=== PATIENT | male | born 1970 | race Caucasian/White ===

== ENCOUNTER → 2018-01-25 | Outpatient (CLI) | payer OTHER ==
[2018-01-25 14:35] LABS: Blood Urea Nitrogen 9 mg/dL (9-20)
--- NOTE | 2018-01-25 16:15 | CT ---
EXAMINATION TYPE: CT ChestAbdPelvis w con DATE OF EXAM: 01/25/2018 INDICATION: Patient complains of weakness, fatigue, and loss of appetite. Patient has known history of lung ca with mets to liver and spine. COMPARISON: NONE available at this location. CT DLP: 1750.7 mGycm CONTRAST: Performed with Oral Contrast and with IV Contrast, patient injected with 100 mL of Isovue 300. TECHNIQUE: Axial images at 5 mm thick sections. Reconstructed images in the coronal plane. Delayed images through the kidneys. FINDINGS: CT CHEST: Portion of the thyroid visualized is normal. Subglottic airway proximally is normal. Within the mid t o distal trachea there is a stent present with some thickening surrounding the stent. This extends in to the proximal bronchi bilaterally. No stenosis within the stent is evident. Some pleural thickening appears to be along the posterior right midlung. There is some stranding vu g the major fissure on the right upper lung field. Faint density measuring 0.7 cm within the lingula. Series 4 image 36. There is an irregular density in the posterior lateral left lung base measuring 1.1 cm. Series 4 imag e 44. Prior rib fractures present on the right at the lung bases. Series 4 image 43, image 54. This include s rib 8 posteriorly laterally and rib 9 more laterally. A 1.3 cm lymph node is in the subcarinal region. The ascending aorta diameter at the level of the main pulmonary artery is 3.9 cm. The main pulmonary artery diameter at the bifurcation is 3.1 cm. Small to moderate pericardial effusion is present. CT ABDOMEN: Liver: There is a large ill-defined hypodense mass encompassing the entire inferior right lobe liver. This measures 16 x 14 cm is compatible with the patient's reported metastasis. Some additional hypod ensities in the medial right lobe liver. Spleen: Normal Pancreas: Normal Adrenal glands: The adrenal glands are normal. Gallbladder: Normal Kidneys: No masses are evident. No hydronephrosis is present. No cysts are present. Delayed images were obtained through the kidneys, which remain unremarkable. Aorta: Vascular calcification is within the aorta. Inferior vena cava: Normal. CT PELVIS: Loops of bowel within the abdomen and pelvis are normal. There are loops of bowel which are incom pletely distended or lack oral contrast limiting their evaluation. Diverticular changes without acute diverticulitis are within the sigmoid colon. Appendix: Not visualized. Urinary bladder: Partially decompressed. Genitourinary structures: Prostate appears normal. Osseous structures: Multiple scattered sclerotic lesions are within the pelvis. There are some scatte red sclerotic areas within the vertebral bodies. There is a lytic area within the anterior lateral as pect of the T11 superior vertebral body. A lytic area within T5 level is not excluded. IMPRESSIONS: 1. Scattered lung findings which are nonspecific but can be compatible with the patient's reported [place] ng cancer. Overtly suspicious mass is not readily apparent. 2. There is a suspicious enlarged lymph node in the subcarinal region. 3. Tracheobronchial stent with surrounding soft tissue. 4. Very large mass mid to inferior right lobe liver compatible with patient's reported metastasis. 5. Diverticulosis without acute diverticulitis sigmoid colon. 6. Suspected lytic lesions within the thoracic spine. 7. Sclerotic lesions within the pelvis.
== END ==
LOC: RADPROMAIN 13:56
PROVIDERS: ATTEND Internal Medicine Hematology & Oncology
DX: C34.90 Malignant neoplasm of unspecified part of unspecified bronchus or lung (principal); R16.0 Hepatomegaly, not elsewhere classified; K57.30 Diverticulosis of large intestine without perforation or abscess without bleeding; Z96.89 Presence of other specified functional implants
CPT/HCPCS: 82565; 84520; 71260; 74177; 36415; Q9967

== ENCOUNTER → 2018-02-23 | Outpatient (CLI) | payer OTHER ==
--- NOTE | 2018-02-23 14:34 | XR ---
EXAMINATION TYPE: XR chest 2V DATE OF EXAM: 02/23/2018 COMPARISON: NONE HISTORY: Chest pain TECHNIQUE: Frontal and lateral views of the chest are obtained. FINDINGS: There is no focal air space opacity. Left-sided MediPort catheter is in place. No evidence for pneumothorax. No pleural effusion. The cardiac silhouette size is within normal limits. The osseous structures are grossly intact. IMPRESSION: 1. No acute cardiopulmonary process.
--- NOTE | 2018-02-23 14:37 | XR ---
EXAMINATION TYPE: XR abdomen 2V DATE OF EXAM: 02/23/2018 COMPARISON: NONE HISTORY: Weakness TECHNIQUE: One view abdominal series FINDINGS: The osseous structures are intact. The bowel gas pattern is nonspecific. Lung bases are clear. Few prominent small bowel loops are seen in the left abdomen. There is a mottled appearance to the visualized osseous structures which can be associated with malig sanaz. There appears to be a marked deformity of the right ninth rib which could represent structure pathologic fracture. IMPRESSION: 1. Abnormal appearance of the visualized osseous structures correlate for bony metastases. Destructiv e lesion involving the posterior lateral right ninth rib. 2. Prominent bowel loops in the left abdomen could be associated with ileus or enteritis correlate cl inically.
== END | disposition home or self-care (01) ==
LOC: RADXRMAIN 14:07
PROVIDERS: ATTEND Nurse Practitioner Adult Health
DX: C34.90 Malignant neoplasm of unspecified part of unspecified bronchus or lung (principal); D63.8 Anemia in other chronic diseases classified elsewhere; G89.3 Neoplasm related pain (acute) (chronic); E04.1 Nontoxic single thyroid nodule
CPT/HCPCS: 71046; 74019

== ENCOUNTER 2018-02-24 13:32 | Inpatient (IN) | payer OTHER ==
--- NOTE | 2018-02-24 14:50 | ED ---
Abdominal Pain HPI - General Chief Complaint: Abdominal Pain Stated Complaint: intestinal blockage Time Seen by Provider: 02/24/18 14:32 Source: patient Mode of arrival: wheelchair Limitations: no limitations - History of Present Illness Initial Comments: 47-year-old male with PMH of metastatic lung CA currently on immunotherapy ( last given 2 weeks prior) presenting with abdominal pain, nausea, and vomiting. He was seen here yesterday for nausea vomiting. Abdominal x-ray was done which showed an ileus. This morning the patient continued to have vomiting and called his oncologist. Spoke with CARLOS James for patient's Oncologist, Dr. Shanks , states they're concerned the patient's recent immunotherapy that he was having inflammation of the bowel. She denies any F/C, chest pain, or shortness of breath. - Related Data Home Medications Medication Instructions Recorded Confirmed Benzonatate [Tessalon Perles] 100 mg PO TID PRN 02/24/18 02/24/18 Calcium Carbonate [Calcium] 600 mg PO DAILY 02/24/18 02/24/18 Cholecalciferol [Vitamin D3] 1,000 unit PO DAILY 02/24/18 02/24/18 Ciprofloxacin HCl [Cipro] 500 mg PO Q12HR 02/24/18 02/24/18 Folic Acid 0.4 mg PO DAILY 02/24/18 02/24/18 HYDROcodone/APAP 10-325MG [[facility] tab PO Q6H PRN 02/24/18 02/24/18 10-325] Nystatin 100,000 Unit/ml Susp 5 ml PO BID 02/24/18 02/24/18 [Mycostatin Oral Susp] Ondansetron HCl [Zofran] 8 mg PO Q8H PRN 02/24/18 02/24/18 Pregabalin [Lyrica] 75 mg PO BID 02/24/18 02/24/18 Ranitidine HCl [Zantac] 150 mg PO DAILY 02/24/18 02/24/18 Vitamin B-17 1 tab PO DAILY 02/24/18 02/24/18 Vitamin E 1,000 unit PO DAILY 02/24/18 02/24/18 tiZANidine [Zanaflex] 2 mg PO Q6H PRN 02/24/18 02/24/18 Allergies Allergy/AdvReac Type Severity Reaction Status Date / Time morphine Allergy Unknown Verified 02/24/18 14:53 Review of Systems ROS Statement: Those systems with pertinent positive or pertinent negative responses have been documented in the HPI. Review of Systems Constitutional: Denies fever, chills Eyes: Denies change in vision, Denies pain Ears, nose, mouth, throat: Denies headaches. Positive sore throat. Cardiovascular: Denies chest pain. Denies palpitations Respiratory: Denies shortness of breath, Denies cough Gastrointestinal: Positive abdominal pain, nausea and vomiting. Denies diarrhea. Genitourinary: Denies hematuria, Denies infections Musculoskeletal: Denies pain, Denies swelling Integumentary: Denies rash Neurological: Denies headache, focal weakness, focal numbness Psychiatric: Denies anxiety, Denies depression Hematologic/Lymphatic: Denies easy bleeding or bruising ROS Other: All systems not noted in ROS Statement are negative. Past Medical History Past Medical History: Cancer Additional Past Medical History / Comment(s): stage 4 lung cancer History of Any Multi-Drug Resistant Organisms: None Reported Past Surgical History: Hernia Repair, Orthopedic Surgery Additional Past Surgical History / Comment(s): liver biopsy Past Psychological History: No Psychological Hx Reported Smoking Status: Former smoker Past Alcohol Use History: None Reported Past Drug Use History: None Reported General Exam - General Exam Comments Initial Comments: General: Awake, alert, No acute Distress HENT: Normocephalic. Atraumatic Eyes: PERRL. EOMI. No scleral icterus. No injected conjunctiva Neck: Full ROM Chest/Lungs: Clear to auscultation bilaterally. No wheezing, rhonchi, or rales Cardiac: Regular rate, rhythm. No murmurs or rubs Abdomen/GI: Soft. TTP in RUQ and epigastrium. No rebound or guarding. Hepatomegaly. Musculoskeletal: Full ROM Skin: Warm, dry, intact Neurologic: A/Ox3, no weakness, no sensory deficit, no abnormal gait, no coordination deficit Limitations: no limitations Course Vital Signs 02/24/18 02/24/18 13:36 16:48 Temperature 97.8 F Pulse Rate 116 H 82 Respiratory 20 16 Rate Blood Pressure 129/79 125/79 O2 Sat by Pulse 98 97 Oximetry Medical Decision Making - Medical Decision Making 47-year-old male presenting after being sent from his oncologist office. Initial exam patient's awake, alert, no acute distress. He is tachycardic but vital signs are otherwise stable. Spoke with Erika, his oncologist's [employer], who states there is concern for bowel infection or necrosis. She spoke with Dr. Shanks regarding his symptoms, who would like him placed on bowel rest, IVF hydration, cipro/Flagyl, and 0.5 mg/kg per day of prednisone. They would like him admitted to the hospital with a surgeon on consult and a CT abdomen pelvis to evaluate for entercolitis. 1701 Spoke with admitting physician. Patient is currently stable for transfer to inpatient unit. - Lab Data Result diagrams: 02/24/18 15:00 02/24/18 15:00 Lab Results 02/24/18 02/24/18 02/24/18 Range/Units 15:00 15:00 16:46 WBC 6.7 (3.8-10.6) k/uL RBC 2.55 L (4.30-5.90) m/uL Hgb 7.4 L (13.0-17.5) gm/dL Hct 23.5 L (39.0-53.0) % MCV 92.1 (80.0-100.0) fL MCH 29.2 (25.0-35.0) pg MCHC 31.7 (31.0-37.0) g/dL RDW 18.1 H (11.5-15.5) % Plt Count 223 (150-450) k/uL Neutrophils % (Manual) 72 % Band Neutrophils % 8 % Lymphocytes % (Manual) 3 % Monocytes % (Manual) 13 % Eosinophils % (Manual) 3 % Metamyelocytes % 1 % Myelocytes % 3 % Neutrophils # (Manual) 5.30 (1.3-7.7) k/uL Lymphocytes # (Manual) 0.20 L (1.0-4.8) k/uL Monocytes # (Manual) 0.87 (0-1.0) k/uL Eosinophils # (Manual) 0.20 (0-0.7) k/uL Metamyelocytes # (Man) 0.07 H (0) k/uL Myelocytes # (Manual) 0.20 H (0) k/uL Nucleated RBCs 2 H (0-0) /100 WBC Manual Slide Review Performed Polychromasia Present Hypochromasia Slight Poikilocytosis Slight Anisocytosis Slight Sodium 135 L (137-145) mmol/L Potassium 3.6 (3.5-5.1) mmol/L Chloride 104 (98-107) mmol/L Carbon Dioxide 23 (22-30) mmol/L Anion Gap 8 mmol/L BUN 12 (9-20) mg/dL Creatinine 0.48 L (0.66-1.25) mg/dL Est GFR (CKD-EPI)AfAm >90 (>60 ml/min/1.73 sqM) Est GFR (CKD-EPI)NonAf >90 (>60 ml/min/1.73 sqM) Glucose 99 (74-99) mg/dL Calcium 7.8 L (8.4-10.2) mg/dL Total Bilirubin 0.5 (0.2-1.3) mg/dL Conjugated Bilirubin 0.0 (0.0-0.3) mg/dL Unconjugated Bilirubin 0.0 (0.0-1.1) mg/dL Delta Bilirubin 0.5 H (0.0-0.2) mg/dL AST 32 (17-59) U/L ALT 47 (21-72) U/L Alkaline Phosphatase 284 H (38-126) U/L Total Protein 4.9 L (6.3-8.2) g/dL Albumin 2.6 L (3.5-5.0) g/dL Lipase 659 H (23-300) U/L Urine Color Yellow Urine Appearance Clear (Clear) Urine pH 6.0 (5.0-8.0) Ur Specific [place] 1.041 H (1.001-1.035) Urine Protein Trace H (Negative) Urine Glucose (UA) Negative (Negative) Urine Ketones Negative (Negative) Urine Blood Negative (Negative) Urine Nitrite Negative (Negative) Urine Bilirubin Negative (Negative) Urine Urobilinogen 2.0 (<2.0) mg/dL Ur Leukocyte Esterase Negative (Negative) Disposition Clinical Impression: Liver metastases, Abdominal pain, Pancreatitis, Pericardial effusion, History of immunotherapy, Anemia, Esophageal thrush Disposition: ADMITTED IP TO THIS [facility] Condition: Good Referrals: Prosper Shanks MD [Primary Care Provider] - 1-2 days Decision to Admit Reason: Admit from [facility] Decision Date: 02/24/18 - Out of Hospital Transfer - Req. Specs Out of Hospital Transfer - Requested Specifics: Telemetry Unit
[2018-02-24] MEDS ORDERED: LACTATED RINGERS 1,000 ML IV ONE (14:59)
[2018-02-24] MEDS ORDERED: RX INFO: IV CONTRAST WAS GIVEN 1 EACH MISC MISCELLANE PRN (15:00)
[2018-02-24] MEDS: SODIUM CHLORIDE 0.9% 1,000 ML IV ONE (15:14)
[2018-02-24] MEDS: MAG HYDROX/AL HYDROX/SIMETH 30 ML, LIDOCAINE VISCOUS 30 ML, NYSTATIN 100,000 UNIT/ML SU... PO SCH ×6 (15:16→23:44)
[2018-02-24] MEDS ORDERED: metroNIDAZOLE-NS PMX 500 MG in SALINE 1 100ML.BAG IVPB STA (15:26)
[2018-02-24 15:38] LABS: ALT 47 U/L (21-72); AST 32 U/L (17-59); Albumin 2.6 g/dL (3.5-5.0); Alkaline Phosphatase 284 U/L (38-126); Anion Gap 8 mmol/L; Bilirubin, Delta 0.5 mg/dL (0.0-0.2); Blood Urea Nitrogen 12 mg/dL (9-20); Calcium 7.8 mg/dL (8.4-10.2); Carbon Dioxide 23 mmol/L (22-30); Chloride 104 mmol/L (98-107); Glucose 99 mg/dL (74-99); Lipase 659 U/L (23-300); Potassium 3.6 mmol/L (3.5-5.1); Sodium 135 mmol/L (137-145); Total Bilirubin 0.5 mg/dL (0.2-1.3); Total Protein 4.9 g/dL (6.3-8.2)
[2018-02-24 16:09] LABS: Anisocytosis Slight; HCT 23.5 % (39.0-53.0); HGB 7.4 gm/dL (13.0-17.5); Hypochromasia Slight; MCH 29.2 pg (25.0-35.0); MCHC 31.7 g/dL (31.0-37.0); MCV 92.1 fL (80.0-100.0); Mean Platelet Volume 7.5; Platelet Count 223 k/uL (150-450); Poikilocytosis Slight; RBC 2.55 m/uL (4.30-5.90); RDW 18.1 % (11.5-15.5)
--- NOTE | 2018-02-24 16:24 | CT ---
EXAMINATION TYPE: CT abdomen pelvis w con DATE OF EXAM: 02/24/2018 COMPARISON: 01/25/2018 HISTORY: Patient complains of constipation, nausea, and vomiting. CT DLP: 1707 mGycm Automated exposure control for dose reduction was used. CONTRAST: CT scan of the abdomen pelvis is performed with IV Contrast, patient injected with 100 mL of Isovue 3 00. FINDINGS- LUNG BASES-there is cardiomegaly and large pericardial effusion. Small bilateral pleural effusions wi th previous rib fractures are noted. Bilateral consolidation seen. Tiny nodules are seen involving th e periphery of the right lower lobe measuring 5 mm or less. Metastasis in the differential diagnosis. . LIVER/GB-there are multiple hepatic lesions again noted with the largest measuring approximately 16 x 11 cm. Occupying the majority of the right lobe of the liver with additional nodules noted near the dome of the liver and within the left lobe of the liver.. PANCREAS- No gross abnormality is seen. SPLEEN- No gross abnormality is seen. ADRENALS-bilateral 1 cm or less adrenal nodules are stable.. KIDNEYS/BLADDER-no hydronephrosis or nephrolithiasis. There is a small hypodensity at the lower pole the left kidney too small to characterize.. BOWEL-bowel gas pattern nonspecific.. LYMPH NODES- No greater than 1cm abdominal or pelvic lymph nodes are appreciated. OSSEOUS STRUCTURES-diffuse widespread skeletal metastasis with evidence of previous fracture involvin g a right-sided rib noted.. OTHER- aorta of normal caliber. IMPRESSION- 1. Large hepatic mass with numerous additional hepatic masses suspicious for malignancy stable from t he prior exam. 2. Increasing pericardial effusion which is now large in size. 3. Widespread bony metastases 4. Nonspecific gas pattern. 5. Bibasilar subsegmental consolidation likely in the basis of atelectasis with tiny effusions.
[2018-02-24 16:41] LABS: Band Neutrophils % 8 %; Metamyelocytes # (M) 0.07 k/uL (0); Metamyelocytes % 1 %; Myelocytes % 3 %; Neutrophils % (M) 72 %; Nucleated Red Blood Cells 2 /100 WBC (0-0); Total Cells Counted 200
[2018-02-24 16:42] LABS: Monocytes # (M) 0.87 k/uL (0-1.0); Polychromasia Present; WBC 6.7 k/uL (3.8-10.6)
[2018-02-24] MEDS ORDERED: NALOXONE 0.4 MG/ML 1 ML VIAL IV PRN (16:53)
[2018-02-24] MEDS ORDERED: ACETAMINOPHEN TAB 325 MG TAB PO PRN (16:53)
[2018-02-24 16:58] LABS: Appearance,Urine Clear (Clear); Bilirubin,Urine Negative (Negative); Blood,Urine Negative (Negative); Color,Urine Yellow; Glucose,Urine (UA) Negative (Negative); Ketones,Urine Negative (Negative); Leukocyte Esterase,Urine Negative (Negative); Nitrite,Urine Negative (Negative); Protein,Urine Trace (Negative); Specific Gravity,Urine 1.041 (1.001-1.035)
[2018-02-24] MEDS ORDERED: FAMOTIDINE 20 MG TAB PO SCH (21:00)
[2018-02-24] MEDS: methylPREDNISolone SOD SUCCI 125 MG/2 ML VIAL IV SCH (22:25)
[2018-02-24] MEDS: PREGABALIN 75 MG CAP PO SCH (22:25)
[2018-02-24] MEDS: CIPROFLOXACIN/DEXTROSE PMX 400 MG in DEXTROSE/WATER 1 200ML.BAG IVPB SCH (22:25)
[2018-02-24] MEDS: NYSTATIN 100,000 UNIT/ML SUSP 500,000 UNIT/5 ML CUP PO SCH (22:26)
[2018-02-24] MEDS: DOCUSATE 100 MG CAP PO SCH (22:27)
[2018-02-24] MEDS: FAMOTIDINE 20 MG/2 ML VIAL IV SCH (22:29)
[2018-02-24] MEDS: HYDROcodone/APAP 5-325MG 1 EACH TAB PO PRN (22:29)
--- NOTE | 2018-02-24 22:29 | P.HPIM ---
History of Present Illness H&P Date: 02/24/18 Chief Complaint: Nausea vomiting and unable to keep down food Patient is a 47-year-old male with PMH of metastatic lung CA currently on immunotherapy (last given 2 weeks prior) presenting with abdominal pain, nausea , and vomiting. Patient came to ER yesterday with complaints of nausea vomiting. Abdominal x-ray was done which showed an ileus. This morning the patient continued to have vomiting and called his oncologist. Spoke with CARLOS James for patient's Oncologist, Dr. Shanks, states they're concerned the patient's recent immunotherapy that he was having inflammation of the bowel. She denies any F/C, chest pain, or shortness of breath. Denied any complaints of chest pain or shortness of breath. Patient says that his been tachycardic for the past few months. CT of abdomen pelvis showed left hepatic mass with numerous additional hepatic masses suspicious for malignancy. Stable from the prior exam Increased pericardial effusion Widespread bony metastasis Nonspecific bowel gas pattern Bibasilar subsegmental atelectasis Review of Systems Constitutional: Patient denies any fever or chills . No generalized weakness or weight loss. Abdomen: Nausea vomiting and abdominal pain. No diarrhea. No constipation.. Cardiovascular: Patient denies any chest pain or short of breath no palpitations. Respiratory: patient denied any cough is from production. No shortness of breath Neurologic: Patient denied any numbness or tingling headache. Musculoskeletal: Patient denies any complaints of joint swelling or deformity. Skin: Negative Psychiatric: Negative Endocrine: No heat or cold intolerance. No recent weight gain. Genitourinary: No dysuria or hematuria. All other 14 point ROS negative except the above Past Medical History Past Medical History: Cancer Additional Past Medical History / Comment(s): stage 4 lung cancer History of Any Multi-Drug Resistant Organisms: None Reported Past Surgical History: Hernia Repair, Orthopedic Surgery Additional Past Surgical History / Comment(s): liver biopsy, stent below trachea due to mass Past Anesthesia/Blood Transfusion Reactions: No Reported Reaction Past Psychological History: No Psychological Hx Reported Smoking Status: Former smoker Past Alcohol Use History: None Reported Past Drug Use History: None Reported - Past Family History Father History Unknown: Yes Family Medical History: Cancer Mother Family Medical History: COPD Medications and Allergies Home Medications Medication Instructions Recorded Confirmed Type Benzonatate [Tessalon Perles] 100 mg PO TID PRN 05/03/18 05/03/18 History Calcium Carbonate [Calcium] 600 mg PO DAILY 02/24/18 02/24/18 History Cholecalciferol [Vitamin D3] 1,000 unit PO DAILY 02/24/18 02/24/18 History Ciprofloxacin HCl [Cipro] 500 mg PO Q12HR 02/24/18 02/24/18 History Folic Acid 0.4 mg PO DAILY 02/24/18 02/24/18 History HYDROcodone/APAP 10-325MG [[place] 1 tab PO Q6H PRN 02/24/18 02/24/18 History 10-325] Nystatin 100,000 Unit/ml Susp 5 ml PO BID 02/24/18 02/24/18 History [Mycostatin Oral Susp] Ondansetron HCl [Zofran] 8 mg PO Q8H PRN 02/24/18 02/24/18 History Pregabalin [Lyrica] 75 mg PO BID 02/24/18 02/24/18 History Ranitidine HCl [Zantac] 150 mg PO DAILY 02/24/18 02/24/18 History Vitamin B-17 1 tab PO DAILY 02/24/18 02/24/18 History Vitamin E 1,000 unit PO DAILY 02/24/18 02/24/18 History tiZANidine [Zanaflex] 2 mg PO Q6H PRN 02/24/18 02/24/18 History Allergies Allergy/AdvReac Type Severity Reaction Status Date / Time morphine Allergy Unknown Verified 02/24/18 14:53 Physical Exam Vitals: Vital Signs Temp Pulse Resp BP Pulse Ox 02/24/18 17:37 18 02/24/18 16:48 82 16 125/79 97 02/24/18 13:36 97.8 F 116 H 20 129/79 98 Intake and Output 02/24/18 02/24/18 02/24/18 06:59 14:59 22:59 Other: Weight 98.883 kg 98.88 kg PHYSICAL EXAMINATION: Patient is lying in the bed comfortably, no acute distress, awake alert and oriented.. HEENT: Normocephalic. Neck is supple. Pupils reactive. Nostrils clear. Oral cavity is moist. Ears reveal no drainage. Neck reveals no JVD, carotid bruits, or thyromegaly. CHEST EXAMINATION: Trachea is central. Symmetrical expansion. Bilateral diffuse rhonchi and coarse breath sounds CARDIAC: Normal S1, S2 with no gallops. No murmurs ABDOMEN: Soft. Bowel sounds normal. Hepatic mass palpable. No abdominal bruits. Extremities: reveal no edema. No clubbing or cyanosis Neurologically awake, alert, oriented x3 with well-coordinated movements. No focal deficits noted Skin: No rash or skin lesions. Psychiatric: Cooperative. Nonsuicidal Musculoskeletal: No joint swelling or deformity. Normal range of motion. Results CBC & Chem 7: 02/24/18 15:00 02/24/18 15:00 Labs: Abnormal Lab Results - Last 24 Hours (Table) 02/24/18 02/24/18 02/24/18 Range/Units 15: 15:00 16:46 RBC 2.55 L (4.30-5.90) m/uL Hgb 7.4 L (13.0-17.5) gm/dL Hct 23.5 L (39.0-53.0) % RDW 18.1 H (11.5-15.5) % Lymphocytes # (Manual) 0.20 L (1.0-4.8) k/uL Metamyelocytes # (Man) 0.07 H (0) k/uL Myelocytes # (Manual) 0.20 H (0) k/uL Nucleated RBCs 2 H (0-0) /100 WBC Sodium 135 L (137-145) mmol/L Creatinine 0.48 L (0.66-1.25) mg/dL Calcium 7.8 L (8.4-10.2) mg/dL Delta Bilirubin 0.5 H (0.0-0.2) mg/dL Alkaline Phosphatase 284 H (38-126) U/L Total Protein 4.9 L (6.3-8.2) g/dL Albumin 2.6 L (3.5-5.0) g/dL Lipase 659 H (23-300) U/L Ur Specific [place] 1.041 H (1.001-1.035) Urine Protein Trace H (Negative) Thrombosis Risk Factor Assmnt - DVT/VTE Prophylaxis DVT/VTE Prophylaxis: Pharmacologic Prophylaxis ordered - Choose All That Apply Any of the Below Risk Factors Present?: Yes Each Factor Represents 1 point: Age 41-60 years Other Risk Factors: Yes Each Risk Factor Represents 2 Points: Malignancy Other congenital or acquired thrombophilia - If yes, enter type in comment: No Thrombosis Risk Factor Assessment Total Risk Factor Score: 3 Thrombosis Risk Factor Assessment Level: Moderate Risk Assessment and Plan Assessment: Nausea vomiting abdominal pain possible chemo related gastritis Acute pancreatitis with elevated lipase level 659 Large pericardial effusion. Increase in size from prior Recent history of colon wall thickening/colitis continued on antibiotics in the form of Cipro and Flagyl Metastatic lung cancer with metastases to liver/ and spine and hip currently on immunotherapy Normocytic anemia. Hemoglobin 7.4 Rule out iron deficiency Morbid obesity with BMI 36.3 Hypovolemic hyponatremia Mild to moderate protein calorie malnutrition DVT prophylaxis Plan: Patient will be continued on IV hydration and clear liquid diet and advance as tolerated. We will get 2-D echocardiogram to assess pericardial effusion and consider CT surgery consult. Symptomatic management for nausea and vomiting and pain management. Will check iron profile and repeat labs in the a.m. Oncology was consulted. Further recommendations based on the clinical course. Prognosis is poor with multiple medical problems and metastatic lung cancer. Discussed with family in detail. Time with Patient: Greater than 30
[2018-02-24] MEDS: metroNIDAZOLE-NS PMX 500 MG in SALINE 1 100ML.BAG IVPB SCH (23:12)
[2018-02-25] MEDS: ONDANSETRON ODT 4 MG TAB PO PRN ×4 (01:07→21:09)
[2018-02-25] MEDS: HYDROcodone/APAP 5-325MG 1 EACH TAB PO PRN ×3 (07:36→21:08)
[2018-02-25] MEDS: methylPREDNISolone SOD SUCCI 125 MG/2 ML VIAL IV SCH ×2 (07:37→16:59)
[2018-02-25] MEDS: metroNIDAZOLE-NS PMX 500 MG in SALINE 1 100ML.BAG IVPB SCH ×3 (07:37→22:12)
[2018-02-25] MEDS: VITAMIN E (DL,TOCOPHERYL ACET) 400 UNIT CAP PO SCH (07:38)
[2018-02-25] MEDS: FOLIC ACID 1 MG TAB PO SCH (07:38)
[2018-02-25] MEDS: DOCUSATE 100 MG CAP PO SCH ×2 (07:38→21:07)
[2018-02-25] MEDS: CHOLECALCIFEROL 1,000 UNIT TAB PO SCH (07:39)
[2018-02-25] MEDS: CALCIUM CARBONATE 500 MG CHEWABLE PO SCH (07:39)
[2018-02-25] MEDS: FAMOTIDINE 20 MG/2 ML VIAL IV SCH ×2 (07:39→21:07)
[2018-02-25] MEDS: NYSTATIN 100,000 UNIT/ML SUSP 500,000 UNIT/5 ML CUP PO SCH ×2 (07:40→21:07)
[2018-02-25] MEDS: PREGABALIN 75 MG CAP PO SCH ×2 (07:49→21:08)
[2018-02-25 08:02] LABS: Anisocytosis Slight; Basophils # (A) 0.1 k/uL (0-0.2); Basophils % (A) 1 %; Eosinophils # (A) 0.1 k/uL (0-0.7); Eosinophils % (A) 1 %; HCT 29.4 % (39.0-53.0); Hypochromasia Moderate; Lymphocytes # (A) 0.3 k/uL (1.0-4.8); Lymphocytes % (A) 4 %; MCHC 30.8 g/dL (31.0-37.0); MCV 94.2 fL (80.0-100.0); Mean Platelet Volume 7.9; Monocytes # (A) 0.5 k/uL (0-1.0); Monocytes % (A) 6 %; Neutrophils # (A) 7.4 k/uL (1.3-7.7); Neutrophils % (A) 87 %; Platelet Count 285 k/uL (150-450); Poikilocytosis Slight; RBC 3.12 m/uL (4.30-5.90); RDW 18.1 % (11.5-15.5); WBC 8.6 k/uL (3.8-10.6)
[2018-02-25 08:08] LABS: Anion Gap 13 mmol/L; Blood Urea Nitrogen 13 mg/dL (9-20); Calcium 9.1 mg/dL (8.4-10.2); Carbon Dioxide 25 mmol/L (22-30); Chloride 99 mmol/L (98-107); Glucose 135 mg/dL (74-99); Potassium 4.7 mmol/L (3.5-5.1); Sodium 137 mmol/L (137-145)
[2018-02-25] MEDS: BENZONATATE 100 MG CAP PO PRN (08:57)
[2018-02-25] MEDS: CIPROFLOXACIN/DEXTROSE PMX 400 MG in DEXTROSE/WATER 1 200ML.BAG IVPB SCH ×2 (08:57→21:06)
[2018-02-25] MEDS ORDERED: VITAMIN B17 PO SCH (09:00)
[2018-02-25] MEDS ORDERED: SODIUM CHLORIDE 0.9% 500 ML IV ONE ×2 (09:17→09:28)
[2018-02-25] MEDS ORDERED: LORazepam 2 MG/ML INJ IV STA (09:27)
[2018-02-25] MEDS: SODIUM CHLORIDE 0.9% 1,000 ML IV ONE (09:40)
--- NOTE | 2018-02-25 10:59 | P.CNPUL ---
History of Present Illness Consult date: 02/25/18 Requesting physician: Linda Rodriguez Reason for consult: dyspnea Chief complaint: Nausea, vomiting History of present illness: This is a very pleasant 47-year-old gentleman with a known history of stage IV metastatic lung cancer who is following with Dr. Shanks. The patient was originally diagnosed 4 years ago at [facility]. 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 He was in remission until July 2017 and was noted recurrence including liver and bone metastasis. The patient has resided in [facility] [place] [place] the last 2 years and returned here to [place] 2 months ago to be near his children and grandchildren. He is currently receiving immunotherapy last dose being approximately 2 weeks ago. He has several days he's been having ongoing issues with nausea and vomiting and I'm able to keep any food down. There was concern regarding possible ileus/colitis. Computed tomography scan of the abdomen revealed a large hepatic mass with numerous additional hepatic masses suspicious for malignancy that were stable from a previous exam last month. There is also increasing pericardial effusion which is larger in size. There is widespread bony metastasis. There is a nonspecific gas pattern. There is by basilar subsegmental consolidation most likely atelectasis with tiny effusions in the lung bases. A previous computed tomography scan of the chest from 01/25/2018 revealed scattered lung findings which were nonspecific but compatible with the patient's history of lung cancer. Overtly suspicious mass was not readily apparent. There was some suspicious enlarged lymph nodes in the subcarinal region. There was noted tracheal bronchial stent with surrounding soft tissue. The patient is seen today in consultation on the regular medical floor. He is awake and alert in no acute distress. He has been having issues with tachycardia with heart rates as high as 180s. Sinus tachycardia. Cardiology had been consulted as well and in regards to the increasing pericardial effusion. Denies any chest pain. He does have some shortness of breath. Dry nonproductive cough. He has been maintaining good O2 saturations in the mid to upper 90s on room air. He's been afebrile. Heart rate back down in the 120s currently. White count 8.6. Hemoglobin 9.0. Creatinine 0.53. Review of Systems 14 point review of system was conducted. All negative other than as mentioned in the HPI. Past Medical History Past Medical History: Cancer Additional Past Medical History / Comment(s): stage 4 lung cancer History of Any Multi-Drug Resistant Organisms: None Reported Past Surgical History: Hernia Repair, Orthopedic Surgery Additional Past Surgical History / Comment(s): liver biopsy, stent below trachea due to mass Past Anesthesia/Blood Transfusion Reactions: No Reported Reaction Past Psychological History: No Psychological Hx Reported Smoking Status: Former smoker Past Alcohol Use History: None Reported Past Drug Use History: None Reported - Past Family History Father History Unknown: Yes Family Medical History: Cancer Mother Family Medical History: COPD Medications and Allergies Home Medications Medication Instructions Recorded Confirmed Type Benzonatate [Tessalon Perles] 100 mg PO TID PRN 02/24/18 02/24/18 History Calcium Carbonate [Calcium] 600 mg PO DAILY 02/24/18 02/24/18 History Cholecalciferol [Vitamin D3] 1,000 unit PO DAILY 02/24/18 02/24/18 History Ciprofloxacin HCl [Cipro] 500 mg PO Q12HR 02/24/18 02/24/18 History Folic Acid 0.4 mg PO DAILY 02/24/18 02/24/18 History HYDROcodone/APAP 10-325MG [[place] 1 tab PO Q6H PRN 02/24/18 02/24/18 History 10-325] Nystatin 100,000 Unit/ml Susp 5 ml PO BID 02/24/18 02/24/18 History [Mycostatin Oral Susp] Ondansetron HCl [Zofran] 8 mg PO Q8H PRN 02/24/18 02/24/18 History Pregabalin [Lyrica] 75 mg PO BID 02/24/18 02/24/18 History Ranitidine HCl [Zantac] 150 mg PO DAILY 02/24/18 02/24/18 History Vitamin B-17 1 tab PO DAILY 02/24/18 02/24/18 History Vitamin E 1,000 unit PO DAILY 02/24/18 02/24/18 History tiZANidine [Zanaflex] 2 mg PO Q6H PRN 02/24/18 02/24/18 History Allergies Allergy/AdvReac Type Severity Reaction Status Date / Time morphine Allergy Unknown Verified 02/24/18 14:53 Physical Exam Vitals: Vital Signs Temp Pulse Pulse Resp BP BP Pulse Ox 02/25/18 08:00 18 02/25/18 07:31 97.5 F L 169 H 16 127/86 97 02/24/18 22:29 98.5 F 125 H 18 161/99 94 L 02/24/18 17:37 18 02/24/18 16:48 82 16 125/79 97 02/24/18 13:36 97.8 F 116 H 20 129/79 98 Intake and Output 02/24/18 02/25/18 02/25/18 22:59 06:59 14:59 Other: Voiding Method Toilet Toilet # Voids 2 2 Weight 98.88 kg GENERAL EXAM: Alert, active, comfortable in no apparent distress. HEAD: Normocephalic. EYES: Normal reaction of pupils, equal size. NOSE: Clear with pink turbinates. THROAT: No erythema or exudates. NECK: No masses, no JVD. CHEST: No chest wall deformity. LUNGS: Equal air entry with scattered rhonchi bilaterally.. CVS: Distant heart sounds. S1 and S2 normal with no audible murmur, regular rhythm. Tachycardic. ABDOMEN: No hepatosplenomegaly, normal bowel sounds, no guarding or rigidity. SPINE: No scoliosis or deformity SKIN: No rashes CENTRAL NERVOUS SYSTEM: No focal deficits, tone is normal in all 4 extremities. EXTREMITIES: There is no peripheral edema. No clubbing, no cyanosis. Peripheral pulses are intact. Results - Laboratory Findings CBC and BMP: 02/25/18 07:04 02/25/18 07:04 Abnormal lab findings: Abnormal Labs 02/24/18 02/24/18 02/24/18 15:00 15:00 16:46 RBC 2.55 L Hgb 7.4 L Hct 23.5 L MCHC RDW 18.1 H Lymphocytes # Lymphocytes # (Manual) 0.20 L Metamyelocytes # (Man) 0.07 H Myelocytes # (Manual) 0.20 H Nucleated RBCs 2 H Sodium 135 L Creatinine 0.48 L Glucose Calcium 7.8 L Delta Bilirubin 0.5 H Alkaline Phosphatase 284 H Total Protein 4.9 L Albumin 2.6 L Lipase 659 H Ur Specific [place] 1.041 H Urine Protein Trace H 02/25/18 02/25/18 07:04 07:04 RBC 3.12 L Hgb 9.0 L D Hct 29.4 L MCHC 30.8 L RDW 18.1 H Lymphocytes # 0.3 L Lymphocytes # (Manual) Metamyelocytes # (Man) Myelocytes # (Manual) Nucleated RBCs Sodium Creatinine 0.53 L Glucose 135 H Calcium Delta Bilirubin Alkaline Phosphatase Total Protein Albumin Lipase Ur Specific [place] Urine Protein - Diagnostic Findings Chest x-ray: image reviewed Assessment and Plan Assessment: Impression: #1 Acute gastritis with nausea vomiting abdominal pain suspect secondary to immunotherapy. #2 Acute pancreatitis. Current lipase 659. #3 Metastatic lung cancer with metastasis to the skeletal system and liver with increasing liver mass. #4 Large pericardial effusion and sinus tachycardia. 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 Plan: The patient was seen and evaluated by Dr. Molina. His overall prognosis is quite poor. He did have discussion with the patient and his who plan to talk with each other little bit more about CODE STATUS. In the interim we'll continue with full supportive care. His heart rate has improved. Tessalon Perles for his cough. He remains on Cipro and Flagyl for bowel prophylaxis. Bowel rest. Heparin for GI prophylaxis. IV Solu-Medrol. Pain medication as required. We will continue to follow make further recommendations based on his clinical status. I, the cosigning physician, performed a history & physical examination of the patient. Lungs sounds with bilateral scattered rhonchi. Maintaining good O2 saturations in the 90s on room air. I discussed the assessment and plan of care with my nurse practitioner, Madyson Spivey. I attest to the above note as dictated by her. Time with Patient: Greater than 30
--- NOTE | 2018-02-25 12:14 | ECHOF ---
Referral Reason:Pericardial effusion MEASUREMENTS -------- HEIGHT: 165.1 cm WEIGHT: 98.4 kg BP: 161/99 IVSd: 1.3 cm (0.6 - 1.1) LVIDd: 4.3 cm (3.9 - 5.3) LVPWd: 1.5 cm (0.6 - 1.1) IVSs: 1.6 cm LVIDs: 3.3 cm LVPWs: 1.3 cm LAESV Index (A-L): 30.95 ml/m Ao Diam: 3.5 cm (2.0 - 3.7) AV Cusp: 2.0 cm (1.5 - 2.6) LA Diam: 3.9 cm (2.7 - 3.8) MV EXCURSION: 15.184 mm (> 18.000) MV EF SLOPE: 152 mm/s (70 - 150) EPSS: 0.3 cm MV E Juvencio: 0.82 m/s MV DecT: 127 ms MV A Juvencio: 0.51 m/s MV E/A Ratio: 1.60 RAP: 5.00 mmHg RVSP: 16.99 mmHg FINDINGS -------- Resting tachycardia (HR>100bpm). This was a technically adequate study. The left ventricular size is normal. There is mild concentric left ventricular hypertrophy. Overa ll left ventricular systolic function is low-normal with, an EF between 50 - 55 %. The right ventricle is normal in size. LA is midly dilated 29-33ml/m2. The right atrial size is normal. The aortic valve is trileaflet, and appears structurally normal. No aortic stenosis or regurgitation. Mild mitral regurgitation is present. Mild tricuspid regurgitation present. There is no evidence of pulmonary hypertension. The right v entricular systolic pressure, as measured by Doppler, is 16.99mmHg. Trace/mild (physiologic) pulmonic regurgitation. The aortic root size is normal. There is a large, generalized pericardial effusion present. The RA was not well seen and it is very difficult to assess for RA collapse. CONCLUSIONS -------- 1. Resting tachycardia (HR>100bpm). 2. The left ventricular size is normal. 3. There is mild concentric left ventricular hypertrophy. 4. Overall left ventricular systolic function is low-normal with, an EF between 50 - 55 %. 5. LA is midly dilated 29-33ml/m2. 6. The aortic valve is trileaflet, and appears structurally normal. No aortic stenosis or regurgitati on. 7. Mild mitral regurgitation is present. 8. Mild tricuspid regurgitation present. 9. There is no evidence of pulmonary hypertension. 10. The right ventricular systolic pressure, as measured by Doppler, is 16.99mmHg. 11. Trace/mild (physiologic) pulmonic regurgitation. 12. The aortic root size is normal. 13. There is a large, generalized pericardial effusion present. 14. The RA was not well seen and it is very difficult to assess for RA collapse. RESIDENT CAREGIVER: Cheryl Mcgraw RDCS
--- NOTE | 2018-02-25 12:52 | P.CRDCN ---
History of Present Illness Consult date: 02/25/18 History of present illness: Mr. Suh is a pleasant 47-year-old male past medical history significant for metastatic stage 4 lung cancer with mets to the liver and spine. He is currently undergoing immuno-therapy. We have been asked to see the patient in consultation for tachycardia. Most history is obtained from the at the bedside secondary to pt sleepiness secondary to recent administration of ativan. He presented to the hospital yesterday afternoon with c/o abdominal pain , nausea and vomiting. He last received an immunotherapy treatement approximately 2 weeks ago. The called his oncologist, Dr. Shanks, and was referred to ED for evaluation of possible inflammatory bowel. CT of the abdomen/ pelvis was obtained and revealed large hepatic mass with numerous additional hepatic masses suspicious for malignancy that are stable from prior exam with widespread bony metastases. Increasing pericadial effusion seen as well. An echocardiogram was obtained which reveals a large generalized pericardial effusion with no evidence of right ventricular tamponade however unable to clearly determine if tamponade evident on right atrium. Ejection fraction 50-55% , mildly dilated left atrium, mild MR and mild TR. This morning while sitting in bed he began coughing and his heart rate went up to the 190s. EKG reveals this is a sinus mechanism. During this episode IV ativan was given and his heart rate has gone down to 120s. Per the he had no symptoms of chest pain , shortness of breath, palpitations or dizziness. Blood pressure 127/86, afebrile since admission and maintaining oxygen saturation on room air. Laboratory data reviewed, hgb 9.0, plt 285, sodium 137, potassium 4.7, creatinine 0.53, magnesium 2.0 anf lipase 659. Review of Systems ROS unobtainable: due to mental status Past Medical History Past Medical History: Cancer Additional Past Medical History / Comment(s): stage 4 lung cancer History of Any Multi-Drug Resistant Organisms: None Reported Past Surgical History: Hernia Repair, Orthopedic Surgery Additional Past Surgical History / Comment(s): liver biopsy, stent below trachea due to mass Past Anesthesia/Blood Transfusion Reactions: No Reported Reaction Past Psychological History: No Psychological Hx Reported Smoking Status: Former smoker Past Alcohol Use History: None Reported Past Drug Use History: None Reported - Past Family History Father History Unknown: Yes Family Medical History: Cancer Mother Family Medical History: COPD Medications and Allergies Home Medications Medication Instructions Recorded Confirmed Type Benzonatate [Tessalon Perles] 100 mg PO TID PRN 02/24/18 02/24/18 History Calcium Carbonate [Calcium] 600 mg PO DAILY 02/24/18 02/24/18 History Cholecalciferol [Vitamin D3] 1,000 unit PO DAILY 02/24/18 02/24/18 History Ciprofloxacin HCl [Cipro] 500 mg PO Q12HR 02/24/18 02/24/18 History Folic Acid 0.4 mg PO DAILY 02/24/18 02/24/18 History HYDROcodone/APAP 10-325MG [[place] 1 tab PO Q6H PRN 02/24/18 02/24/18 History 10-325] Nystatin 100,000 Unit/ml Susp 5 ml PO BID 02/24/18 02/24/18 History [Mycostatin Oral Susp] Ondansetron HCl [Zofran] 8 mg PO Q8H PRN 02/24/18 02/24/18 History Pregabalin [Lyrica] 75 mg PO BID 02/24/18 02/24/18 History Ranitidine HCl [Zantac] 150 mg PO DAILY 02/24/18 02/24/18 History Vitamin B-17 1 tab PO DAILY 02/24/18 02/24/18 History Vitamin E 1,000 unit PO DAILY 02/24/18 02/24/18 History tiZANidine [Zanaflex] 2 mg PO Q6H PRN 02/24/18 02/24/18 History Allergies Allergy/AdvReac Type Severity Reaction Status Date / Time morphine Allergy Unknown Verified 02/24/18 14:53 Physical Exam Vitals: Vital Signs Temp Pulse Pulse Resp BP BP Pulse Ox 02/25/18 08:00 18 02/25/18 07:31 97.5 F L 169 H 16 127/86 97 02/24/18 22:29 98.5 F 125 H 18 161/99 94 L 02/24/18 17:37 18 02/24/18 16:48 82 16 125/79 97 02/24/18 13:36 97.8 F 116 H 20 129/79 98 Intake and Output 02/24/18 02/25/18 02/25/18 22:59 06:59 14:59 Other: Voiding Method Toilet Toilet # Voids 2 2 Weight 98.88 kg 98.88 kg GENERAL: This is a 47-year-old male in no apparent distress at the time of my examination. Lethargic. Just received IV ativan. HEENT: Head is atraumatic, normocephalic. Pupils are equal, round. Sclerae anicteric. Conjunctivae are clear. Mucous membranes of the mouth are moist. Neck is supple. There is no jugular venous distention. No carotid bruit is heard. Cool and clammy to touch with mild yellowing of skin. LUNGS: Course rhonchi throughout. No rales or wheezing. No chest wall tenderness is noted on palpation or with deep breathing. HEART: Regular rate and rhythm without murmurs, rubs or gallops. S1 and S2 heard. Tachycardic. ABDOMEN: Soft, non-tender. Bowel sounds are heard. EXTREMITIES: No evidence of peripheral edema and no calf tenderness noted. VASCULAR: Radial and dorsalis pedis pulses palpated, no evidence of clubbing. NEUROLOGIC: Patient is lethargic. Results 02/25/18 07:04 02/25/18 07:04 Cardiac Enzymes 02/24/18 Range/Units 15:00 AST 32 (17-59) U/L CBC 02/24/18 02/25/18 Range/Units 15:00 07:04 WBC 6.7 8.6 (3.8-10.6) k/uL RBC 2.55 L 3.12 L (4.30-5.90) m/uL Hgb 7.4 L 9.0 L D (13.0-17.5) gm/dL Hct 23.5 L 29.4 L (39.0-53.0) % Plt Count 223 285 (150-450) k/uL Comprehensive Metabolic Panel 02/24/18 02/25/18 Range/Units 15:00 07:04 Sodium 135 L 137 (137-145) mmol/L Potassium 3.6 4.7 (3.5-5.1) mmol/L Chloride 104 99 (98-107) mmol/L Carbon Dioxide 23 25 (22-30) mmol/L BUN 12 13 (9-20) mg/dL Creatinine 0.48 L 0.53 L (0.66-1.25) mg/dL Glucose 99 135 H (74-99) mg/dL Calcium 7.8 L 9.1 (8.4-10.2) mg/dL Unconjugated Bilirubin 0.0 (0.0-1.1) mg/dL AST 32 (17-59) U/L ALT 47 (21-72) U/L Alkaline Phosphatase 284 H (38-126) U/L Total Protein 4.9 L (6.3-8.2) g/dL Albumin 2.6 L (3.5-5.0) g/dL Current Medications Generic Name Dose Route Start Last Admin Trade Name Freq PRN Reason Stop Dose Admin Acetaminophen 650 mg 02/24/18 16:53 Tylenol Tab PO Q6HR PRN Mild Pain or Fever > 100.5 Hydrocodone Bitart/Acetaminophen 1 each 02/24/18 16:53 02/25/18 07:36 [place] 5-325 PO 1 each Q4HR PRN Administration Moderate Pain Alprazolam 0.5 mg 02/25/18 09:28 Xanax PO TID PRN Anxiety Benzonatate 100 mg 02/24/18 16:59 02/25/18 08:57 Tessalon Perles PO 100 mg TID PRN Administration Cough Calcium Carbonate/Glycine 500 mg 02/25/18 09:00 02/25/18 07:39 Tums PO 500 mg DAILY TARA Administration Cholecalciferol 1,000 unit 02/25/18 09:00 02/25/18 07:39 Vitamin D3 PO 1,000 unit DAILY TARA Administration Al Hydroxide/Mg Hydroxide 30 0 ml 02/24/18 16:00 02/24/18 23:44 ml/ Lidocaine HCl 30 ml/ PO Not Given Nystatin 3,000,000 unit TID TARA Docusate Sodium 100 mg 02/24/18 21:00 02/25/18 07:38 Colace PO Not Given BID TARA Famotidine 20 mg 02/24/18 21:30 02/25/18 07:39 Pepcid IV 20 mg Q12HR TARA Administration Folic Acid 0.5 mg 02/25/18 09:00 02/25/18 07:38 Folic Acid PO 0.5 mg DAILY TARA Administration Ciprofloxacin/Dextrose 400 mg/ 200 mls @ 160 mls/hr 02/24/18 21:00 02/25/18 08:57 IV Solution IVPB 160 mls/hr BID TARA Administration Metronidazole 500 mg/ IV 100 mls @ 100 mls/hr 02/24/18 22:00 02/25/18 07:37 Solution IVPB 100 mls/hr TID TARA Administration Ketorolac Tromethamine 30 mg 02/24/18 16:53 Toradol IVP 03/01/18 16:54 Q6HR PRN Moderate Pain Methylprednisolone Sodium Succinate 50 mg 02/24/18 21:00 02/25/18 07:37 Solu-Medrol IV 50 mg BID TARA Administration Miscellaneous Information 1 each 02/24/18 15:00 02/24/18 15:38 Rx Info: Iv Contrast Was Given MISCELLANE 02/26/18 15:00 1 each DAILY PRN Administration Per Protocol Naloxone HCl 0.2 mg 02/24/18 16:53 Narcan IV Q2M PRN Opioid Reversal Nystatin 500,000 unit 02/24/18 21:00 02/25/18 07:40 Mycostatin Oral Susp PO 500,000 unit BID TARA Administration Ondansetron HCl 4 mg 02/24/18 16:58 02/25/18 07:49 Zofran Odt PO 4 mg Q4HR PRN Administration Nausea Pregabalin 75 mg 02/24/18 21:00 02/25/18 07:49 Lyrica PO 75 mg BID TARA Administration Vitamin E 800 unit 02/25/18 09:00 02/25/18 07:38 Vitamin E PO 800 unit DAILY TARA Administration Intake and Output 02/24/18 02/25/18 02/25/18 22:59 06:59 14:59 Other: Voiding Method Toilet Toilet # Voids 2 2 Weight 98.88 kg 98.88 kg Patient Weight 02/26/18 06:59 Weight 98.88 kg 02/25/18 07:04 02/25/18 07:04 Assessment and Plan Assessment: ASSESSMENT 1. Large pericardia effusion with no evidence of tamponade in RV with difficult imaging to assess RA accurately for tamponade 2. Stage 4 liver cancer with metastasis to bone and liver 3. Episode of SVT, resolved with persistent sinus tachycardia 4. Former nicotine dependence, quit 11 monhts ago 5. Acute pancreatitis PLAN From cardiology perspective, we have reviewed the echocardiogram and discussed with cardiothoracic surgery team in regards to pericardial effusion and possible pericardiocentesis. This will be determined by cardiothoracic team. Overall prognosis is guarded secondary to metastatic lung cancer. Nurse Practitioner note has been reviewed, I agree with a documented findings and plan of care. Patient was seen and examined.
--- NOTE | 2018-02-25 13:41 | P.GSCN ---
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 His cancer is followed by Dr. Shanks from oncology on an outpatient basis. He was diagnosed with lung cancer 4 years ago at [facility]. 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 He is currently receiving immunotherapy and his reports that his last dose was approximately 2 weeks ago. His also reports that they were living in [place] in a camper and have recently moved back to [place] to be closer to their children and grandchildren. On February 23 he presented to the emergency department here at [facility] with complaints of lack of appetite, fast heart rate, nausea, and vomiting. He has not had anything to eat for about 2 weeks. He denies any fever, diarrhea, loss of bowel or bladder function. On 02/24/[address] scan of his abdomen and pelvis which demonstrated a large hepatic mass with numerous additional hepatic masses suspicious for malignancy, increasing pericardial effusion, large in size , widespread bony metastases and a nonspecific gas pattern. Due to the patient' s complaint of fast heart rates a 2-D echocardiogram was completed which demonstrated mild mitral valve regurgitation, mild tricuspid valve regurgitation , mild pulmonic valve regurgitation, and an overall left ventricular systolic function to be low normal with an ejection fraction between 50 and 55% and a large generalized pericardial effusion. Due to the patient's presenting symptoms and 2-D echocardiogram results a consult was placed for cardiothoracic surgery to evaluate his pericardial effusion. Review of Systems A 14 point review of systems was completed and was negative except as mentioned in HPI. Past Medical History Past Medical History: Cancer Additional Past Medical History / Comment(s): stage 4 lung cancer History of Any Multi-Drug Resistant Organisms: None Reported Past Surgical History: Hernia Repair, Orthopedic Surgery Additional Past Surgical History / Comment(s): liver biopsy, stent below trachea due to mass Past Anesthesia/Blood Transfusion Reactions: No Reported Reaction Past Psychological History: No Psychological Hx Reported Smoking Status: Former smoker (Quit 11 months ago) Past Alcohol Use History: None Reported Additional Drug Use History / Comment(s): THC oil use - Past Family History Father History Unknown: Yes Family Medical History: Cancer (Colon cancer) Mother Family Medical History: COPD, CVA/TIA Medications and Allergies Home Medications Medication Instructions Recorded Confirmed Type Benzonatate [Tessalon Perles] 100 mg PO TID PRN 02/24/18 02/24/18 History Calcium Carbonate [Calcium] 600 mg PO DAILY 02/24/18 02/24/18 History Cholecalciferol [Vitamin D3] 1,000 unit PO DAILY 02/24/18 02/24/18 History Ciprofloxacin HCl [Cipro] 500 mg PO Q12HR 02/24/18 02/24/18 History Folic Acid 0.4 mg PO DAILY 02/24/18 02/24/18 History HYDROcodone/APAP 10-325MG [[place] 1 tab PO Q6H PRN 02/24/18 02/24/18 History 10-325] Nystatin 100,000 Unit/ml Susp 5 ml PO BID 02/24/18 02/24/18 History [Mycostatin Oral Susp] Ondansetron HCl [Zofran] 8 mg PO Q8H PRN 02/24/18 02/24/18 History Pregabalin [Lyrica] 75 mg PO BID 02/24/18 02/24/18 History Ranitidine HCl [Zantac] 150 mg PO DAILY 02/24/18 02/24/18 History Vitamin B-17 1 tab PO DAILY 02/24/18 02/24/18 History Vitamin E 1,000 unit PO DAILY 02/24/18 02/24/18 History tiZANidine [Zanaflex] 2 mg PO Q6H PRN 02/24/18 02/24/18 History Allergies Allergy/AdvReac Type Severity Reaction Status Date / Time morphine Allergy Unknown Verified 02/24/18 14:53 Surgical - Exam Vital Signs Temp Pulse Resp BP Pulse Ox 97.8 F 116 H 20 129/79 98 02/24/18 13:36 02/24/18 13:36 02/24/18 13:36 02/24/18 13:36 02/24/18 13:36 - General Jaundiced no pain, cachectic, chronically ill, obese - Eyes PERRL, normal ocular movement - ENT normal pinna, normal nares, normal mucosa, no hearing loss, no congestion - Neck no masses, no bruits, trachea midline, no venous distension - Respiratory Lung sounds with coarse rhonchi throughout, diminished to his bilateral bases. Oxygen saturations 96% on room air. - Cardiovascular Regular rhythm with a tachycardic rate. S1 and S2 present, negative for S3, gallop or murmur. Remote telemetry showing sinus tachycardia heart rate 115 - Abdomen Abdomen is soft, nontender nondistended. No organomegaly, no guarding or rigidity. Hypoactive bowel sounds to all 4 abdominal quadrants. - Genitourinary Voiding clear krystal urine. - Rectum Deferred - Integumentary no rash, no growths, no abnormal pigmentation - Neurologic normal coordination, normal sensation - Musculoskeletal Weak unsteady gait normal posture - Psychiatric oriented to time, oriented to person, oriented to place, speech is normal, memory intact Results - Labs 02/25/18 07:04 02/25/18 07:04 Abnormal Lab Results - Last 24 Hours (Table) 02/24/18 02/24/18 02/24/18 Range/Units 15:00 15:00 16:46 RBC 2.55 L (4.30-5.90) m/uL Hgb 7.4 L (13.0-17.5) gm/dL Hct 23.5 L (39.0-53.0) % MCHC (31.0-37.0) g/dL RDW 18.1 H (11.5-15.5) % Lymphocytes # (1.0-4.8) k/uL Lymphocytes # (Manual) 0.20 L (1.0-4.8) k/uL Metamyelocytes # (Man) 0.07 H (0) k/uL Myelocytes # (Manual) 0.20 H (0) k/uL Nucleated RBCs 2 H (0-0) /100 WBC Sodium 135 L (137-145) mmol/L Creatinine 0.48 L (0.66-1.25) mg/dL Glucose (74-99) mg/dL Calcium 7.8 L (8.4-10.2) mg/dL Delta Bilirubin 0.5 H (0.0-0.2) mg/dL Alkaline Phosphatase 284 H (38-126) U/L Total Protein 4.9 L (6.3-8.2) g/dL Albumin 2.6 L (3.5-5.0) g/dL Lipase 659 H (23-300) U/L Ur Specific [place] 1.041 H (1.001-1.035) Urine Protein Trace H (Negative) 02/25/18 02/25/18 Range/Units 07:04 07:04 RBC 3.12 L (4.30-5.90) m/uL Hgb 9.0 L D (13.0-17.5) gm/dL Hct 29.4 L (39.0-53.0) % MCHC 30.8 L (31.0-37.0) g/dL RDW 18.1 H (11.5-15.5) % Lymphocytes # 0.3 L (1.0-4.8) k/uL Lymphocytes # (Manual) (1.0-4.8) k/uL Metamyelocytes # (Man) (0) k/uL Myelocytes # (Manual) (0) k/uL Nucleated RBCs (0-0) /100 WBC Sodium (137-145) mmol/L Creatinine 0.53 L (0.66-1.25) mg/dL Glucose 135 H (74-99) mg/dL Calcium (8.4-10.2) mg/dL Delta Bilirubin (0.0-0.2) mg/dL Alkaline Phosphatase (38-126) U/L Total Protein (6.3-8.2) g/dL Albumin (3.5-5.0) g/dL Lipase (23-300) U/L Ur Specific [place] (1.001-1.035) Urine Protein (Negative) Diabetes panel 02/24/18 02/25/18 Range/Units 15:00 07:04 Sodium 135 L 137 (137-145) mmol/L Potassium 3.6 4.7 (3.5-5.1) mmol/L Chloride 104 99 (98-107) mmol/L Carbon Dioxide 23 25 (22-30) mmol/L BUN 12 13 (9-20) mg/dL Creatinine 0.48 L 0.53 L (0.66-1.25) mg/dL Glucose 99 135 H (74-99) mg/dL Calcium 7.8 L 9.1 (8.4-10.2) mg/dL AST 32 (17-59) U/L ALT 47 (21-72) U/L Alkaline Phosphatase 284 H (38-126) U/L Total Protein 4.9 L (6.3-8.2) g/dL Albumin 2.6 L (3.5-5.0) g/dL Calcium panel 02/24/18 02/25/18 Range/Units 15:00 07:04 Calcium 7.8 L 9.1 (8.4-10.2) mg/dL Albumin 2.6 L (3.5-5.0) g/dL Pituitary panel 02/24/18 02/25/18 Range/Units 15:00 07:04 Sodium 135 L 137 (137-145) mmol/L Potassium 3.6 4.7 (3.5-5.1) mmol/L Chloride 104 99 (98-107) mmol/L Carbon Dioxide 23 25 (22-30) mmol/L BUN 12 13 (9-20) mg/dL Creatinine 0.48 L 0.53 L (0.66-1.25) mg/dL Glucose 99 135 H (74-99) mg/dL Calcium 7.8 L 9.1 (8.4-10.2) mg/dL Adrenal panel 02/24/18 02/25/18 Range/Units 15:00 07:04 Sodium 135 L 137 (137-145) mmol/L Potassium 3.6 4.7 (3.5-5.1) mmol/L Chloride 104 99 (98-107) mmol/L Carbon Dioxide 23 25 (22-30) mmol/L BUN 12 13 (9-20) mg/dL Creatinine 0.48 L 0.53 L (0.66-1.25) mg/dL Glucose 99 135 H (74-99) mg/dL Calcium 7.8 L 9.1 (8.4-10.2) mg/dL Total Bilirubin 0.5 (0.2-1.3) mg/dL AST 32 (17-59) U/L ALT 47 (21-72) U/L Alkaline Phosphatase 284 H (38-126) U/L Total Protein 4.9 L (6.3-8.2) g/dL Albumin 2.6 L (3.5-5.0) g/dL - Imaging Comments: 2-D echocardiogram results reviewed by Dr. Anne. Assessment and Plan (1) Lung cancer Current Visit: Yes Status: Acute Code(s): C34.90 - MALIGNANT NEOPLASM OF UNSP PART OF UNSP BRONCHUS OR LUNG SNOMED Code(s): 159985834 (2) History of immunotherapy Current Visit: Yes Status: Acute Code(s): Z92.89 - PERSONAL HISTORY OF OTHER MEDICAL TREATMENT SNOMED Code(s): 794707046 (3) Liver metastases Current Visit: Yes Status: Acute Code(s): C78.7 - SECONDARY MALIG NEOPLASM OF LIVER AND INTRAHEPATIC BILE DUCT SNOMED Code(s): 43429302 (4) Pericardial effusion Current Visit: Yes Status: Acute Code(s): I31.3 - PERICARDIAL EFFUSION ( NONINFLAMMATORY) SNOMED Code(s): 996792798 Plan: The patient was seen and examined. His chart and diagnostics were reviewed. The patient was seen and examined by Dr. Anne. He discussed treatment options with the patient and his . For now we will recommend hydration with IV fluids and heart rate control using beta blockers. Thank you Dr. Hernandez for this consult and we look forward to working with you in the care of your patient. Time with Patient: Greater than 30
[2018-02-25] MEDS: MAG HYDROX/AL HYDROX/SIMETH 30 ML, LIDOCAINE VISCOUS 30 ML, NYSTATIN 100,000 UNIT/ML SU... PO SCH ×9 (14:35→22:12)
[2018-02-25 17:46] LABS: Iron Saturation 41.8 (15.00-50.00)
--- NOTE | 2018-02-25 18:51 | P.CONS ---
History of Present Illness - Reason for Consult Consult date: 02/25/18 Metastatic Lung Cancer Requesting physician: Ashley Watts - Chief Complaint Persistent Nausea and Vomiting - History of Present Illness This is a very nice patient who started to have exertional dyspnea and dysphagia in the spring,became progressively worse,had a CXR which was suspicious for a mediastinal mass,had a CT scan of the chest which revealed on 03/22/2013 which revealed a 4.7x4.2x4.8cm mass involving the distal trachea just above the bifurcation and displacing the esophagus,associated with subcarinal lymphadenopathies. He was transferred to [facility] and on 03/24/2013,had bronchoscopy with mechanical debulking and laser ablation with stent placement.The pathology revealed adenoid cystic carcinoma. He started chemotherapy 05/01/13 with [facility] and Cisplatin, along with concurrent radiation,completed 2 cycles,completed XRT on 06/13/2013,he tolerated treatment well. Repeat PET scan on 07/07/2013 revealed significant improvement in the mediastinal mass uptake,significant uptake in the left thyroid lobe nodule which was also see on previous PET scan and U/S done in and a biopsy in which was benign. Then he moved to [place] in 2013,he did not have an oncology follow up until April,,he was asymptomatic at that time but had CT scan on 04/28/2017 revealing hepatic metastasis,he did not purse it until when he developed worsening back pain,had a CT scan on 09/06/2017 which revealed diffuse liver metastasis and multiple osseous lesions,he had palliative XRT to thoracic spine, liver biopsy confirmed recurrence adenoid carcinoma. He was started on systemic chemotherapy in [place] with carboplatin/alimta on 05/2017,however,repeat CT scan on 11/03/2017 revealed further disease progression after 3 cycles. He was started on atezolizumab on 11/03/2017 in [place] and had 2 cycles. He resumed atezolizumab in [place] on 01/05/2018. He just had a repeat CT scan,awaiting to be compared to previous one in [place], he feels tired,continues to have cough,his back back is partially controlled with norco He presented to the office on Wednesday02/23/18 with persistent Nausea and vomiting and inability to hold any food or drink in x3 days. He originally went to Emergency, although was waiting and decided to come up and be evaulated in the office. He is status post 4th treatment of immunotherapy with atezolizumab. During evaluation in the office he stated he has been having normal bowel movements with intermittent bouts of constipation and diarrhea. He denied fevers , but did admit to subjective cold chills and sweats. An Abdominal Xray, Chest Xray, IVF Hydration, IV antiemetics, and Blood work was completed during visit. These resulted later that evening and the lipase was elevated. The xray was still pending at that time. The patient was instructed to only take in clear liquids at that time and go back to ER if still vomitting. He was prescribed Cipro (? UTI versus gastritis) and Nystatin Swish and spit for oral thrush. He presented to ER Morning. Xray showed possible enteritis versus ileus, increasing pericardial effusion, and he was still feeling very weak and fatigued. His last immunotherapy was given on 02/10/18. Review of Systems A 14 Point Review of systems assessed and completed and all negative except HPI Past Medical History Past Medical History: Cancer Additional Past Medical History / Comment(s): stage 4 lung cancer History of Any Multi-Drug Resistant Organisms: None Reported Past Surgical History: Hernia Repair, Orthopedic Surgery Additional Past Surgical History / Comment(s): liver biopsy, stent below trachea due to mass Past Anesthesia/Blood Transfusion Reactions: No Reported Reaction Past Psychological History: No Psychological Hx Reported Smoking Status: Former smoker (Quit 11 months ago) Past Alcohol Use History: None Reported Additional Drug Use History / Comment(s): THC oil use - Past Family History Father History Unknown: Yes Family Medical History: Cancer (Colon cancer) Mother Family Medical History: COPD, CVA/TIA Medications and Allergies Home Medications Medication Instructions Recorded Confirmed Type Benzonatate [Tessalon Perles] 100 mg PO TID PRN 02/24/18 02/24/18 History Calcium Carbonate [Calcium] 600 mg PO DAILY 02/24/18 02/24/18 History Cholecalciferol [Vitamin D3] 1,000 unit PO DAILY 02/24/18 02/24/18 History Ciprofloxacin HCl [Cipro] 500 mg PO Q12HR 02/24/18 02/24/18 History Folic Acid 0.4 mg PO DAILY 02/24/18 02/24/18 History HYDROcodone/APAP 10-325MG [[place] 1 tab PO Q6H PRN 02/24/18 02/24/18 History 10-325] Nystatin 100,000 Unit/ml Susp 5 ml PO BID 02/24/18 02/24/18 History [Mycostatin Oral Susp] Ondansetron HCl [Zofran] 8 mg PO Q8H PRN 02/24/18 02/24/18 History Pregabalin [Lyrica] 75 mg PO BID 02/24/18 02/24/18 History Ranitidine HCl [Zantac] 150 mg PO DAILY 02/24/18 02/24/18 History Vitamin B-17 1 tab PO DAILY 02/24/18 02/24/18 History Vitamin E 1,000 unit PO DAILY 02/24/18 02/24/18 History tiZANidine [Zanaflex] 2 mg PO Q6H PRN 02/24/18 02/24/18 History Allergies Allergy/AdvReac Type Severity Reaction Status Date / Time morphine Allergy Unknown Verified 02/24/18 14:53 Physical Exam Vitals: Vital Signs Temp Pulse Resp BP Pulse Ox 02/25/18 15:16 97.7 F 118 H 16 142/81 95 02/25/18 08:00 18 02/25/18 07:31 97.5 F L 169 H 16 127/86 97 02/24/18 22:29 98.5 F 125 H 18 161/99 94 L Intake and Output 02/25/18 02/25/18 02/25/18 06:59 14:59 22:59 Intake Total 1250 Balance 1250 Intake: Intake, IV Titration 800 Amount Ciprofloxacin/Dextrose 200 Pmx 400 mg In Dextrose/ Water 1 200ml.bag @ 160 mls/hr IVPB BID TARA Rx#: [id number] Sodium Chloride 0.9% 500 500 ml @ 999 mls/hr IV .Q31M ONE Rx#:[id number] metroNIDAZOLE-NS PMX 500 100 mg In Saline 1 100ml.bag @ 100 mls/hr IVPB ONCE STA Rx#:[id number] Oral 450 Other: Voiding Method Toilet Toilet Toilet # Voids 2 2 Weight 98.88 kg - Constitutional General appearance: average body habitus, no acute distress - EENT Eyes: EOMI, PERRLA ENT: NA/AT, thrush - Neck Neck: normal ROM - Respiratory Respiratory: bilateral: diminished, wheezing - Cardiovascular Heart rate: 130 Rhythm: regular Heart sounds: normal: S1, S2 - Gastrointestinal General gastrointestinal: normal bowel sounds, soft, tenderness - Neurologic Neurologic: CNII-XII intact - Musculoskeletal Musculoskeletal: generalized weakness, strength equal bilaterally - Psychiatric Psychiatric: A&O x's 3, appropriate affect, intact judgment & insight Results CBC & Chem 7: 02/25/18 07:04 02/25/18 07:04 Labs: Abnormal Lab Results - Last 24 Hours (Table) 02/25/18 02/25/18 Range/Units 07:04 07:04 RBC 3.12 L (4.30-5.90) m/uL Hgb 9.0 L D (13.0-17.5) gm/dL Hct 29.4 L (39.0-53.0) % MCHC 30.8 L (31.0-37.0) g/dL RDW 18.1 H (11.5-15.5) % Lymphocytes # 0.3 L (1.0-4.8) k/uL Creatinine 0.53 L (0.66-1.25) mg/dL Glucose 135 H (74-99) mg/dL Microbiology - Last 24 Hours (Table) 02/24/18 15:29 Blood Culture - Preliminary Blood No Growth after 24 hours Assessment and Plan Plan: Assessment and Recommendations: 1. 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 Persistent Nausea and Vomiting - Enteritis versus Ileus 3. Pericardial Effusion: - ?Component of Pericarditis 4. Elevated Lipase - Pancreatitis - Bowel Rest and Supportive Care With the treatment of immunotherapy a possible side effect of inflammation to any organ is considered. Treatment with High dose Steroids is indicated in this picture and with the picture of inflammatory process seen in the GI tract, Pancreas, and Possible Heart it is resonable to proceed with High Dose Steroids and Hold further Immunotherapy Until resolution of the inflammation. Another possibility of this clinical picture is progressive disease. Patient was [place] out of state previously so comparision of imaging in [place] to recent imaging will help to differentiate this. This has been discussed in full with the patient and and an understanding stated. Continue supportive care, abx, and steroids at this time. Physician Attestation: I have completed the full history and physical on this patient and discussed and agree with above note by Erika Campos [employer], Dictated as a scribe.
[2018-02-25] MEDS: KETOROLAC 30 MG/ML 1 ML VIAL IVP PRN (22:19)
[2018-02-26] MEDS: methylPREDNISolone SOD SUCCI 125 MG/2 ML VIAL IV SCH ×4 (00:02→23:49)
[2018-02-26] MEDS: BENZONATATE 100 MG CAP PO PRN ×3 (00:12→20:25)
[2018-02-26] MEDS: ALPRAZolam 0.5 MG TAB PO PRN (00:13)
[2018-02-26] MEDS: HYDROcodone/APAP 5-325MG 1 EACH TAB PO PRN ×2 (01:30→09:14)
[2018-02-26] MEDS: ONDANSETRON ODT 4 MG TAB PO PRN (01:30)
--- NOTE | 2018-02-26 01:42 | P.PN ---
Subjective Progress Note Date: 02/25/18 Principal diagnosis: Nausea vomiting or abdominal pain Pericardial effusion large Patient is a 47-year-old male with PMH of metastatic lung CA currently on immunotherapy (last given 2 weeks prior) presenting with abdominal pain, nausea , and vomiting. Patient came to ER yesterday with complaints of nausea vomiting. Abdominal x-ray was done which showed an ileus. This morning the patient continued to have vomiting and called his oncologist. Spoke with CARLOS James for patient's Oncologist, Dr. Shanks, states they're concerned the patient's recent immunotherapy that he was having inflammation of the bowel. She denies any F/C, chest pain, or shortness of breath. Denied any complaints of chest pain or shortness of breath. Patient says that his been tachycardic for the past few months. CT of abdomen pelvis showed left hepatic mass with numerous additional hepatic masses suspicious for malignancy. Stable from the prior exam Increased pericardial effusion Widespread bony metastasis Nonspecific bowel gas pattern Bibasilar subsegmental atelectasis 02/25/2018 Patient is awake this morning but seems very drowsy. Otherwise heart rate went up to 180s this morning but is currently around 115. Patient was seen by cardiology pulmonary and CT surgery as well as oncology. Computed tomography scan recommends conservative management and heart rate controlled. Due to immunotherapy suspected all other information including pericarditis. Patient was started on IV steroids. Due to poor prognosis discussed with the patient and family regarding CODE STATUS. Patient currently wants CPR to be done. Not sure whether he has the pain secondary to the problem his been having. Discussed with at bedside as well. No fever no chills otherwise. No complaints of chest pain. No worsening shortness of breath. Abdominal pain improved. Patient will be started back on oral diet and advance as tolerated.. Prognosis is poor. All other review of systems negative as above Active Medications Generic Name Dose Route Start Last Admin Trade Name Freq PRN Reason Stop Dose Admin Acetaminophen 650 mg 02/24/18 16:53 Tylenol Tab PO Q6HR PRN Mild Pain or Fever > 100.5 Hydrocodone Bitart/Acetaminophen 1 each 02/24/18 16:53 02/26/18 01:30 [place] 5-325 PO 1 each Q4HR PRN Administration Moderate Pain Alprazolam 0.5 mg 02/25/18 09:28 02/26/18 00:13 Xanax PO 0.5 mg TID PRN Administration Anxiety Benzonatate 100 mg 02/24/18 16:59 02/26/18 00:12 Tessalon Perles PO 100 mg TID PRN Administration Cough Calcium Carbonate/Glycine 500 mg 02/25/18 09:00 02/25/18 07:39 Tums PO 500 mg DAILY TARA Administration Cholecalciferol 1,000 unit 02/25/18 09:00 02/25/18 07:39 Vitamin D3 PO 1,000 unit DAILY [facility] Administration Al Hydroxide/Mg Hydroxide 30 0 ml 02/24/18 16:00 02/25/18 22:12 ml/ Lidocaine HCl 30 ml/ PO 5 ml Nystatin 3,000,000 unit TID [facility] Administration Docusate Sodium 100 mg 02/24/18 21:00 02/25/18 21:07 Colace PO Not Given BID [facility] Famotidine 20 mg 02/24/18 21:30 02/25/18 21:07 Pepcid IV 20 mg Q12HR TARA Administration Folic Acid 0.5 mg 02/25/18 09:00 02/25/18 07:38 Folic Acid PO 0.5 mg DAILY [facility] Administration Ciprofloxacin/Dextrose 400 mg/ 200 mls @ 160 mls/hr 02/24/18 21:00 02/25/18 21:06 IV Solution IVPB 160 mls/hr BID [facility] Administration Metronidazole 500 mg/ IV 100 mls @ 100 mls/hr 02/24/18 22:00 02/25/18 22:12 Solution IVPB 100 mls/hr TID [facility] Administration Diltiazem HCl 50 mg/ Sodium 50 mls @ 7.5 mls/hr 02/26/18 01:30 Chloride IV .Q6H40M [facility] Protocol 7.5 MG/HR Ketorolac Tromethamine 30 mg 02/24/18 16:53 02/25/18 22:19 Toradol IVP 03/01/18 16:54 30 mg Q6HR PRN Administration Moderate Pain Methylprednisolone Sodium Succinate 60 mg 02/25/18 16:00 02/26/18 00:02 Solu-Medrol IV 60 mg Q8HR [facility] Administration Metoprolol Tartrate 25 mg 02/27/18 08:00 Lopressor PO BID [facility] Miscellaneous Information 1 each 02/24/18 15:00 02/24/18 15:38 Rx Info: Iv Contrast Was Given MISCELLANE 02/26/18 15:00 1 each DAILY PRN Administration Per Protocol Naloxone HCl 0.2 mg 02/24/18 16:53 Narcan IV Q2M PRN Opioid Reversal Nystatin 500,000 unit 02/24/18 21:00 02/25/18 21:07 Mycostatin Oral Susp PO 500,000 unit BID TARA Administration Ondansetron HCl 4 mg 02/24/18 16:58 02/26/18 01:30 Zofran Odt PO 4 mg Q4HR PRN Administration Nausea Pregabalin 75 mg 02/24/18 21:00 02/25/18 21:08 Lyrica PO 75 mg BID TARA Administration Vitamin E 800 unit 02/25/18 09:00 02/25/18 07:38 Vitamin E PO 800 unit DAILY TARA Administration Objective - Vital Signs Vital signs: Vital Signs Temp 97.5 F L 02/25/18 07:31 Pulse 169 H 02/25/18 07:31 Resp 18 02/25/18 08:00 BP 127/86 02/25/18 07:31 Pulse Ox 97 02/25/18 07:31 Intake & Output 02/24/18 02/25/18 02/25/18 18:59 06:59 18:59 Weight 98.88 kg 98.88 kg Other: Voiding Method Toilet Toilet # Voids 2 - Exam PHYSICAL EXAMINATION: Patient is lying in the bed comfortably, no acute distress, awake alert and oriented.. HEENT: Normocephalic. Neck is supple. Pupils reactive. Nostrils clear. Oral cavity is moist. Ears reveal no drainage. Neck reveals no JVD, carotid bruits, or thyromegaly. CHEST EXAMINATION: Trachea is central. Symmetrical expansion. Bilateral diffuse rhonchi and coarse breath sounds CARDIAC: Normal S1, S2 with no gallops. No murmurs ABDOMEN: Soft. Bowel sounds normal. Hepatic mass palpable. No abdominal bruits. Extremities: reveal no edema. No clubbing or cyanosis Neurologically awake, alert, oriented x3 with well-coordinated movements. No focal deficits noted Skin: No rash or skin lesions. Psychiatric: Cooperative. Nonsuicidal Musculoskeletal: No joint swelling or deformity. Normal ra - Labs CBC & Chem 7: 02/25/18 07:04 02/25/18 07:04 Labs: Abnormal Lab Results - Last 24 Hours (Table) 02/24/18 02/24/18 02/24/18 Range/Units 15:00 15:00 16:46 RBC 2.55 L (4.30-5.90) m/uL Hgb 7.4 L (13.0-17.5) gm/dL Hct 23.5 L (39.0-53.0) % MCHC (31.0-37.0) g/dL RDW 18.1 H (11.5-15.5) % Lymphocytes # (1.0-4.8) k/uL Lymphocytes # (Manual) 0.20 L (1.0-4.8) k/uL Metamyelocytes # (Man) 0.07 H (0) k/uL Myelocytes # (Manual) 0.20 H (0) k/uL Nucleated RBCs 2 H (0-0) /100 WBC Sodium 135 L (137-145) mmol/L Creatinine 0.48 L (0.66-1.25) mg/dL Glucose (74-99) mg/dL Calcium 7.8 L (8.4-10.2) mg/dL Delta Bilirubin 0.5 H (0.0-0.2) mg/dL Alkaline Phosphatase 284 H (38-126) U/L Total Protein 4.9 L (6.3-8.2) g/dL Albumin 2.6 L (3.5-5.0) g/dL Lipase 659 H (23-300) U/L Ur Specific [place] 1.041 H (1.001-1.035) Urine Protein Trace H (Negative) 02/25/18 02/25/18 Range/Units 07:04 07:04 RBC 3.12 L (4.30-5.90) m/uL Hgb 9.0 L D (13.0-17.5) gm/dL Hct 29.4 L (39.0-53.0) % MCHC 30.8 L (31.0-37.0) g/dL RDW 18.1 H (11.5-15.5) % Lymphocytes # 0.3 L (1.0-4.8) k/uL Lymphocytes # (Manual) (1.0-4.8) k/uL Metamyelocytes # (Man) (0) k/uL Myelocytes # (Manual) (0) k/uL Nucleated RBCs (0-0) /100 WBC Sodium (137-145) mmol/L Creatinine 0.53 L (0.66-1.25) mg/dL Glucose 135 H (74-99) mg/dL Calcium (8.4-10.2) mg/dL Delta Bilirubin (0.0-0.2) mg/dL Alkaline Phosphatase (38-126) U/L Total Protein (6.3-8.2) g/dL Albumin (3.5-5.0) g/dL Lipase (23-300) U/L Ur Specific [place] (1.001-1.035) Urine Protein (Negative) Assessment and Plan Assessment: Nausea vomiting abdominal pain possible chemo related gastritis Acute pancreatitis with elevated lipase level 659 Large pericardial effusion. Increase in size from prior Possible pericarditis since patient is currently undergoing immunotherapy Recent history of colon wall thickening/colitis continued on antibiotics in the form of Cipro and Flagyl Metastatic lung cancer with metastases to liver/ and spine and hip currently on immunotherapy Normocytic anemia. Hemoglobin 7.4 Rule out iron deficiency Morbid obesity with BMI 36.3 Hypovolemic hyponatremia Mild to moderate protein calorie malnutrition DVT prophylaxis Plan: Patient will be continued on IV hydration and clear liquid diet and advance as tolerated. 2-D echo was done. CT surgery recommends hydration and heart rate controlled with beta blockers. Symptomatic management for nausea and vomiting and pain management. Oncology was consulted. Due to immunotherapy suspected organ inflammation and patient was started on IV steroids Further recommendations based on the clinical course. Prognosis is poor with multiple medical problems and metastatic lung cancer. Discussed with family in detail. Time with Patient: Greater than 30
[2018-02-26] MEDS: DILTIAZEM 50 MG in SODIUM CHLORIDE 0.9% 40 ML IV SCH ×7 (01:58→20:31)
[2018-02-26] MEDS: HEPARIN SODIUM,PORCINE 5,000 UNIT/ML 1 ML VIAL SQ SCH ×3 (05:06→20:20)
[2018-02-26 07:23] LABS: Anisocytosis Slight; HCT 28.2 % (39.0-53.0); HGB 8.7 gm/dL (13.0-17.5); Hypochromasia Moderate; MCHC 30.7 g/dL (31.0-37.0); MCV 94.4 fL (80.0-100.0); Mean Platelet Volume 8.4; Platelet Count 268 k/uL (150-450); Poikilocytosis Slight; RBC 2.98 m/uL (4.30-5.90); RDW 18.2 % (11.5-15.5); WBC 7.7 k/uL (3.8-10.6)
[2018-02-26 07:31] LABS: Anion Gap 11 mmol/L; Blood Urea Nitrogen 15 mg/dL (9-20); Calcium 9.1 mg/dL (8.4-10.2); Carbon Dioxide 28 mmol/L (22-30); Chloride 103 mmol/L (98-107); Glucose 113 mg/dL (74-99); Potassium 4.7 mmol/L (3.5-5.1); Sodium 142 mmol/L (137-145)
[2018-02-26] MEDS: DOCUSATE 100 MG CAP PO SCH ×3 (08:26→21:18)
[2018-02-26] MEDS: CIPROFLOXACIN/DEXTROSE PMX 400 MG in DEXTROSE/WATER 1 200ML.BAG IVPB SCH ×2 (08:26→20:20)
[2018-02-26] MEDS: CALCIUM CARBONATE 500 MG CHEWABLE PO SCH (08:26)
[2018-02-26] MEDS: PREGABALIN 75 MG CAP PO SCH ×2 (08:26→20:24)
[2018-02-26] MEDS: CHOLECALCIFEROL 1,000 UNIT TAB PO SCH (08:26)
[2018-02-26] MEDS: VITAMIN E (DL,TOCOPHERYL ACET) 400 UNIT CAP PO SCH (08:26)
[2018-02-26] MEDS: NYSTATIN 100,000 UNIT/ML SUSP 500,000 UNIT/5 ML CUP PO SCH ×2 (08:26→21:18)
[2018-02-26] MEDS: FOLIC ACID 1 MG TAB PO SCH (08:26)
[2018-02-26] MEDS: FAMOTIDINE 20 MG/2 ML VIAL IV SCH ×2 (08:27→20:20)
[2018-02-26] MEDS: KETOROLAC 30 MG/ML 1 ML VIAL IVP PRN (09:11)
[2018-02-26] MEDS: MAG HYDROX/AL HYDROX/SIMETH 30 ML, LIDOCAINE VISCOUS 30 ML, NYSTATIN 100,000 UNIT/ML SU... PO SCH ×9 (09:15→21:22)
[2018-02-26] MEDS: metroNIDAZOLE-NS PMX 500 MG in SALINE 1 100ML.BAG IVPB SCH ×3 (09:51→22:34)
[2018-02-26 10:06] LABS: Band Neutrophils % 8 %; Basophils # (M) 0.08 k/uL (0-0.2); Eosinophils # (M) 0.08 k/uL (0-0.7); Lymphocytes # (M) 0.23 k/uL (1.0-4.8); Metamyelocytes # (M) 0.15 k/uL (0); Metamyelocytes % 2 %; Monocytes # (M) 0.69 k/uL (0-1.0); Myelocytes # (M) 0.15 k/uL (0); Myelocytes % 2 %; Neutrophils % (M) 76 %; Nucleated Red Blood Cells 0 /100 WBC (0-0); Total Cells Counted 200
[2018-02-26 10:07] LABS: Polychromasia Present; Tear Drop Cells Present
--- NOTE | 2018-02-26 11:53 | P.PN ---
Subjective Progress Note Date: 02/26/18 Principal diagnosis: Pericardial effusion, metastatic lung cancer with metastasis to his skeletal system, and liver, acute pancreatitis, history of tracheal stenosis with subsequent stenting. The patient is lying in bed with his head elevated. He is in no acute distress. He reports that he is having some episodes of shortness of breath, although he reports that he has shortness of breath on a daily basis. The patient had an episode of atrial fibrillation throughout the night and was started on a Cardizem drip. Objective - Vital Signs Vital signs: Vital Signs Temp 97.5 F L 02/26/18 03:46 Pulse 106 H 02/26/18 08:00 Resp 18 02/26/18 08:00 BP 134/62 02/26/18 08:00 Pulse Ox 100 02/26/18 08:00 Intake & Output 02/25/18 02/26/18 02/26/18 18:59 06:59 18:59 Intake Total 1250 622.167 258 Output Total 200 Balance 1250 422.167 258 Weight 98.88 kg 98.88 kg Intake: Intake, IV Titration 800 62.167 18 Amount Ciprofloxacin/Dextrose 200 Pmx 400 mg In Dextrose/ Water 1 200ml.bag @ 160 mls/hr IVPB BID TARA Rx#: [id number] Diltiazem 50 mg In Sodium 54.667 18 Chloride 0.9% 40 ml @ 10 MG/HR 10 mls/hr IV .Q5H TARA Rx#:[id number] Diltiazem 50 mg In Sodium 7.5 Chloride 0.9% 40 ml @ 7. 5 MG/HR 7.5 mls/hr IV . Q6H40M TARA Rx#:[id number] Sodium Chloride 0.9% 500 500 ml @ 999 mls/hr IV .Q31M ONE Rx#:[id number] metroNIDAZOLE-NS PMX 500 100 mg In Saline 1 100ml.bag @ 100 mls/hr IVPB ONCE STA Rx#:[id number] Oral 450 560 240 Output: Urine 200 Other: Voiding Method Toilet Toilet # Voids 2 - Constitutional General appearance: Present: cooperative, no acute distress, obese - Neck Details: No JVD present. - Respiratory Details: Lung sounds with coarse rhonchi throughout, diminished was bilateral bases. Respirations are symmetrical and nonlabored. Oxygen saturation are 100% on 2 L nasal cannula. - Cardiovascular Details: Regular rhythm with a tachycardic rate. S1 and S2 present, negative for S3, gallop or murmur. Remote telemetry showing sinus tachycardia 110 BPM. No edema present. - Gastrointestinal Gastrointestinal Comment(s): Abdomen is soft, nontender and nondistended. Obese. Active bowel sounds all 4 abdominal quadrants. No guarding or rigidity. - Genitourinary Genitourinary Comment(s): Voiding clear yellow urine. - Integumentary Integumentary Comment(s): Skin is warm and dry. No clubbing or cyanosis present. No rash or abnormal pigmentation. - Neurologic Neurologic: Present: CNII-XII intact - Musculoskeletal Musculoskeletal: Present: gait normal, strength equal bilaterally - Psychiatric Psychiatric: Present: A&O x's 3, appropriate affect, intact judgment & insight - Allied health notes Allied health notes reviewed: nursing - Labs CBC & Chem 7: 02/26/18 07:02 02/26/18 07:02 Labs: Abnormal Lab Results - Last 24 Hours (Table) 02/25/18 02/26/18 02/26/18 Range/Units 07:04 07:02 07:02 RBC 2.98 L (4.30-5.90) m/uL Hgb 8.7 L (13.0-17.5) gm/dL Hct 28.2 L (39.0-53.0) % MCHC 30.7 L (31.0-37.0) g/dL RDW 18.2 H (11.5-15.5) % Lymphocytes # (Manual) 0.23 L (1.0-4.8) k/uL Metamyelocytes # (Man) 0.15 H (0) k/uL Myelocytes # (Manual) 0.15 H (0) k/uL Glucose 113 H (74-99) mg/dL TIBC 189 L (228-460) ug/dL Ferritin 3295.1 H (22.0-322.0) ng/mL Microbiology - Last 24 Hours (Table) 02/24/18 15:29 Blood Culture - Preliminary Blood No Growth after 24 hours Assessment and Plan (1) Lung cancer Current Visit: Yes Status: Acute Code(s): C34.90 - MALIGNANT NEOPLASM OF UNSP PART OF UNSP BRONCHUS OR LUNG SNOMED Code(s): 432658109 (2) History of immunotherapy Current Visit: Yes Status: Acute Code(s): Z92.89 - PERSONAL HISTORY OF OTHER MEDICAL TREATMENT SNOMED Code(s): 736781788 (3) Liver metastases Current Visit: Yes Status: Acute Code(s): C78.7 - SECONDARY MALIG NEOPLASM OF LIVER AND INTRAHEPATIC BILE DUCT SNOMED Code(s): 54621011 (4) Pericardial effusion Current Visit: Yes Status: Acute Code(s): I31.3 - PERICARDIAL EFFUSION ( NONINFLAMMATORY) SNOMED Code(s): 744747609 Plan: 1. Continue supportive care. 2. Pulmonary management management per Dr. Freeman recommendations. 3. Continue IV fluids for fluid resuscitation. 4. Continue to maximize medical therapy, continue beta danis. 5. Further recommendations to follow based on the patient's clinical course. Time with Patient: Greater than 30
[2018-02-26] MEDS: HYDROcodone/APAP 10-325MG 1 EACH TAB PO PRN ×3 (13:12→22:37)
--- NOTE | 2018-02-26 13:14 | PN ---
PROGRESS NOTE This patient has a metastatic lung cancer. Echocardiogram reveals a large pericardial effusion. He is comfortable. Patient went into atrial fibrillation during the night. Patient was started on Cardizem drip, but patient subsequently converted to normal sinus rhythm. He is feeling comfortable. Patient's blood pressure is 116/72 mmHg, heart rate is 96 per minute. Jugular venous pressure is elevated up to the angle of the jaw. First and second heart sounds are normal. Lungs reveal a few scattered wheezes. We will continue the patient on current medications. Patient would probably need a pericardial window, because of the large pericardial effusion. MMODL / IJN: [id number] /
--- NOTE | 2018-02-26 13:54 | P.PN ---
Subjective Progress Note Date: 02/26/18 Principal diagnosis: Acute gastritis with nausea vomiting abdominal pain This is a very pleasant 47-year-old gentleman with a known history of stage IV metastatic lung cancer who is following with Dr. Shanks. The patient was originally diagnosed 4 years ago at [facility]. 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 He was in remission until July 2017 and was noted recurrence including liver and bone metastasis. The patient has resided in [facility] the last 2 years and returned here to [place] 2 months ago to be near his children and grandchildren. He is currently receiving immunotherapy last dose being approximately 2 weeks ago. He has several days he's been having ongoing issues with nausea and vomiting and I'm able to keep any food down. There was concern regarding possible ileus/colitis. Computed tomography scan of the abdomen revealed a large hepatic mass with numerous additional hepatic masses suspicious for malignancy that were stable from a previous exam last month. There is also increasing pericardial effusion which is larger in size. There is widespread bony metastasis. There is a nonspecific gas pattern. There is by basilar subsegmental consolidation most likely atelectasis with tiny effusions in the lung bases. A previous computed tomography scan of the chest from 01/25/2018 revealed scattered lung findings which were nonspecific but compatible with the patient's history of lung cancer. Overtly suspicious mass was not readily apparent. There was some suspicious enlarged lymph nodes in the subcarinal region. There was noted tracheal bronchial stent with surrounding soft tissue. The patient is seen today in consultation on the regular medical floor. He is awake and alert in no acute distress. He has been having issues with tachycardia with heart rates as high as 180s. Sinus tachycardia. Cardiology had been consulted as well and in regards to the increasing pericardial effusion. Denies any chest pain. He does have some shortness of breath. Dry nonproductive cough. He has been maintaining good O2 saturations in the mid to upper 90s on room air. He's been afebrile. Heart rate back down in the 120s currently. White count 8.6. Hemoglobin 9.0. Creatinine 0.53. The patient is seen again today 02/26/2018 in follow-up on the selective care unit. He is awake and alert in no acute distress. He is breathing better today as compared to yesterday. He is maintaining O2 saturations up to 100% on 2 L/m per nasal cannula. He's been afebrile. His heart rate is better controlled he's been initiated on a Cardizem drip at 10 mg per hour. His appetite is improved his tolerating a liquid diet right now. No further vomiting. He remains on Cipro and Flagyl. Cultures reveal no growth to date. White count 7.7. Hemoglobin 8.7. Platelet count 268,000. Sodium 142, potassium 4.7. Creatinine 0.66. Objective - Vital Signs Vital signs: Vital Signs Temp 96.8 F L 02/26/18 11:50 Pulse 96 02/26/18 11:50 Resp 18 02/26/18 12:00 BP 116/72 02/26/18 11:50 Pulse Ox 100 02/26/18 11:50 Intake & Output 02/25/18 02/26/18 02/26/18 18:59 06:59 18:59 Intake Total 1250 622.167 498 Output Total 200 Balance 1250 422.167 498 Weight 98.88 kg 98.88 kg Intake: Intake, IV Titration 800 62.167 18 Amount Ciprofloxacin/Dextrose 200 Pmx 400 mg In Dextrose/ Water 1 200ml.bag @ 160 mls/hr IVPB BID TARA Rx#: [id number] Diltiazem 50 mg In Sodium 54.667 18 Chloride 0.9% 40 ml @ 10 MG/HR 10 mls/hr IV .Q5H TARA Rx#:[id number] Diltiazem 50 mg In Sodium 7.5 Chloride 0.9% 40 ml @ 7. 5 MG/HR 7.5 mls/hr IV . Q6H40M TARA Rx#:[id number] Sodium Chloride 0.9% 500 500 ml @ 999 mls/hr IV .Q31M ONE Rx#:[id number] metroNIDAZOLE-NS PMX 500 100 mg In Saline 1 100ml.bag @ 100 mls/hr IVPB ONCE STA Rx#:[id number] Oral 450 560 480 Output: Urine 200 Other: Voiding Method Toilet Toilet Toilet # Voids 2 - Exam GENERAL EXAM: Alert, active, comfortable in no apparent distress. HEAD: Normocephalic. EYES: Normal reaction of pupils, equal size. NOSE: Clear with pink turbinates. THROAT: No erythema or exudates. NECK: No masses, no JVD. CHEST: No chest wall deformity. LUNGS: Equal air entry with scattered rhonchi bilaterally.. CVS: Distant heart sounds. S1 and S2 normal with no audible murmur, regular rhythm. Tachycardic. ABDOMEN: No hepatosplenomegaly, normal bowel sounds, no guarding or rigidity. SPINE: No scoliosis or deformity SKIN: No rashes CENTRAL NERVOUS SYSTEM: No focal deficits, tone is normal in all 4 extremities. EXTREMITIES: There is no peripheral edema. No clubbing, no cyanosis. Peripheral pulses are intact. - Labs CBC & Chem 7: 02/26/18 07:02 02/26/18 07:02 Labs: Abnormal Lab Results - Last 24 Hours (Table) 02/25/18 02/26/18 02/26/18 Range/Units 07:04 07:02 07:02 RBC 2.98 L (4.30-5.90) m/uL Hgb 8.7 L (13.0-17.5) gm/dL Hct 28.2 L (39.0-53.0) % MCHC 30.7 L (31.0-37.0) g/dL RDW 18.2 H (11.5-15.5) % Lymphocytes # (Manual) 0.23 L (1.0-4.8) k/uL Metamyelocytes # (Man) 0.15 H (0) k/uL Myelocytes # (Manual) 0.15 H (0) k/uL Glucose 113 H (74-99) mg/dL TIBC 189 L (228-460) ug/dL Transferrin 139.0 L (204.0-354.0) mg/dL Ferritin 3295.1 H (22.0-322.0) ng/mL Microbiology - Last 24 Hours (Table) 02/24/18 15:29 Blood Culture - Preliminary Blood No Growth after 24 hours Assessment and Plan Assessment: Impression: #1 Acute gastritis with nausea vomiting abdominal pain suspect enteritis versus ileus secondary to a atezolizumab. Improved, tolerating clear liquids. #2 Acute pancreatitis. Current lipase 659. 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 #4 Large pericardial effusion and sinus tachycardia. 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 Plan: The patient was seen and evaluated by Dr. Molina. The patient is much improved today as compared to yesterday. He was initiated on a Cardizem drip and his heart rate is better controlled. He remains in sinus. We'll continue with his current treatment plan. He is tolerating a liquid diet. We will continue to follow make further recommendations based on his clinical status. I, the cosigning physician, performed a history & physical examination of the patient. Lungs sounds with bilateral scattered rhonchi. Maintaining good O2 saturations in the 90s on room air. I discussed the assessment and plan of care with my nurse practitioner, Madyson Spivey. I attest to the above note as dictated by her.
--- NOTE | 2018-02-26 18:14 | P.PN ---
Subjective Progress Note Date: 02/26/18 the patient was moved to [facility] care, due to an episode of atrial fibrillation. Heart rate is now controlled on Cardizem drip. he states that his abdominal pain has essentially resolved. He has not had any diarrhea, or nausea. He is tolerating clears well, and feels hungry. Objective - Vital Signs Vital signs: Vital Signs Temp 97 F L 02/26/18 16:00 Pulse 99 02/26/18 16:00 Resp 18 02/26/18 16:00 BP 105/68 02/26/18 16:00 Pulse Ox 99 02/26/18 16:00 Intake & Output 02/25/18 02/26/18 02/26/18 18:59 06:59 18:59 Intake Total 1250 622.167 548 Output Total 200 Balance 1250 422.167 548 Weight 98.88 kg 98.88 kg Intake: Intake, IV Titration 800 62.167 68 Amount Ciprofloxacin/Dextrose 200 Pmx 400 mg In Dextrose/ Water 1 200ml.bag @ 160 mls/hr IVPB BID [facility] Rx#: [id number] Diltiazem 50 mg In Sodium 54.667 68 Chloride 0.9% 40 ml @ 10 MG/HR 10 mls/hr IV .Q5H [facility] Rx#:[id number] Diltiazem 50 mg In Sodium 7.5 Chloride 0.9% 40 ml @ 7. 5 MG/HR 7.5 mls/hr IV . Q6H40M [facility] Rx#:[id number] Sodium Chloride 0.9% 500 500 ml @ 999 mls/hr IV .Q31M [facility] Rx#:[id number] metroNIDAZOLE-NS PMX 500 100 mg In Saline 1 100ml.bag @ 100 mls/hr IVPB ONCE [facility] Rx#:[id number] Oral 450 560 480 Output: Urine 200 Other: Voiding Method Toilet Toilet Toilet # Voids 2 - Constitutional General appearance: Present: mild distress - EENT Eyes: Present: EOMI, PERRLA ENT: Present: normal oropharynx - Respiratory Respiratory: bilateral: CTA - Cardiovascular Rhythm: irregularly irregular Heart sounds: normal: S1, S2 - Gastrointestinal General gastrointestinal: Present: normal bowel sounds, soft Localized gastrointestinal: tender: epigastric periumbilical (mild, improved compared to previous exam) - Integumentary Integumentary: Present: normal - Neurologic Neurologic: Present: CNII-XII intact - Musculoskeletal Musculoskeletal: Present: generalized weakness, strength equal bilaterally - Psychiatric Psychiatric: Present: A&O x's 3, appropriate affect - Labs CBC & Chem 7: 02/26/18 07:02 02/26/18 07:02 Labs: Abnormal Lab Results - Last 24 Hours (Table) 02/25/18 02/26/18 02/26/18 Range/Units 07:04 07:02 07:02 RBC 2.98 L (4.30-5.90) m/uL Hgb 8.7 L (13.0-17.5) gm/dL Hct 28.2 L (39.0-53.0) % MCHC 30.7 L (31.0-37.0) g/dL RDW 18.2 H (11.5-15.5) % Lymphocytes # (Manual) 0.23 L (1.0-4.8) k/uL Metamyelocytes # (Man) 0.15 H (0) k/uL Myelocytes # (Manual) 0.15 H (0) k/uL Glucose 113 H (74-99) mg/dL TIBC 189 L (228-460) ug/dL Transferrin 139.0 L (204.0-354.0) mg/dL Ferritin 3295.1 H (22.0-322.0) ng/mL Microbiology - Last 24 Hours (Table) 02/24/18 15:29 Blood Culture - Preliminary Blood No Growth after 48 hours Assessment and Plan (1) Pancreatitis Narrative/Plan: the patient is presenting with somewhat generalized inflammation, with enteritis, and pancreatitis. This is felt to be likely due to his immunotherapy effect. He has been off treatment for 2 weeks now. His abdominal complaints are much improved today. He is hungry and would like to advance his diet. I will advance to full liquids. Current Visit: Yes Status: Acute Code(s): K85.90 - ACUTE PANCREATITIS WITHOUT NECROSIS OR INFECTION, UNSP SNOMED Code(s): 06453131 (2) Pericardial effusion Narrative/Plan: This was initially felt to be most likely inflammatory, due to a reaction to his immunotherapy, given his other symptoms. However with steroids, his abdominal pain has improved, while he still remains short of breath and has developed atrial fibrillation. This raises the concern that the pericardial effusion could be due to another etiology, suggest progressive malignancy. The case was discussed in detail with cardiology. They will assess the patient and then determine, along with thoracic surgery if the patient requires pericardiocentesis. Continue IV steroids Current Visit: Yes Status: Acute Code(s): I31.3 - PERICARDIAL EFFUSION ( NONINFLAMMATORY) SNOMED Code(s): 633775567 (3) Cancer related pain Current Visit: Yes Status: Acute Code(s): G89.3 - NEOPLASM RELATED PAIN ( ACUTE) (CHRONIC) SNOMED Code(s): 896805619 Plan: The patient has had a flare of his back pain, that is related to his metastatic disease. He states that normally flares are controlled with Happy 10 at home. He is currently receiving Toradol, and normal findings. Toradol will be stopped, and normal changed to 10-325. Avoid adding a long-acting medication at this time, as the patient has had adverse reactions to fentanyl and morphine in the past
--- NOTE | 2018-02-26 21:59 | P.PN ---
Subjective Progress Note Date: 02/26/18 Principal diagnosis: Nausea vomiting or abdominal pain Pericardial effusion large Patient is a 47-year-old male with PMH of metastatic lung CA currently on immunotherapy (last given 2 weeks prior) presenting with abdominal pain, nausea , and vomiting. Patient came to ER yesterday with complaints of nausea vomiting. Abdominal x-ray was done which showed an ileus. This morning the patient continued to have vomiting and called his oncologist. Spoke with CARLOS James for patient's Oncologist, Dr. Shanks, states they're concerned the patient's recent immunotherapy that he was having inflammation of the bowel. She denies any F/C, chest pain, or shortness of breath. Denied any complaints of chest pain or shortness of breath. Patient says that his been tachycardic for the past few months. CT of abdomen pelvis showed left hepatic mass with numerous additional hepatic masses suspicious for malignancy. Stable from the prior exam Increased pericardial effusion Widespread bony metastasis Nonspecific bowel gas pattern Bibasilar subsegmental atelectasis 02/25/2018 Patient is awake this morning but seems very drowsy. Otherwise heart rate went up to 180s this morning but is currently around 115. Patient was seen by cardiology pulmonary and CT surgery as well as oncology. Computed tomography scan recommends conservative management and heart rate controlled. Due to immunotherapy suspected all other information including pericarditis. Patient was started on IV steroids. Due to poor prognosis discussed with the patient and family regarding CODE STATUS. Patient currently wants CPR to be done. Not sure whether he has the pain secondary to the problem his been having. Discussed with at bedside as well. No fever no chills otherwise. No complaints of chest pain. No worsening shortness of breath. Abdominal pain improved. Patient will be started back on oral diet and advance as tolerated.. Prognosis is poor. 02/26/2018 Patient went into atrial fibrillation rapid ventricular rate and was started on Cardizem drip. Heart rate is better controlled. Continued on metoprolol as well. Otherwise abdominal pain and nausea vomiting resolved. Patient was started on diet which has been advanced. Patient is being followed by oncology pulmonary and cardiology as well as CT surgery. No fever no chills. Anticipate discharge in next 24-48 hours. All other review of systems negative as above Active Medications Generic Name Dose Route Start Last Admin Trade Name Freq PRN Reason Stop Dose Admin Acetaminophen 650 mg 02/24/18 16:53 Tylenol Tab PO Q6HR PRN Mild Pain or Fever > 100.5 Hydrocodone Bitart/Acetaminophen 1 each 02/24/18 16:53 02/26/18 01:30 [place] 5-325 PO 1 each Q4HR PRN Administration Moderate Pain Alprazolam 0.5 mg 02/25/18 09:28 02/26/18 00:13 Xanax PO 0.5 mg TID PRN Administration Anxiety Benzonatate 100 mg 02/24/18 16:59 02/26/18 00:12 Tessalon Perles PO 100 mg TID PRN Administration Cough Calcium Carbonate/Glycine 500 mg 02/25/18 09:00 02/25/18 07:39 Tums PO 500 mg DAILY TARA Administration Cholecalciferol 1,000 unit 02/25/18 09:00 02/25/18 07:39 Vitamin D3 PO 1,000 unit DAILY TARA Administration Al Hydroxide/Mg Hydroxide 30 0 ml 02/24/18 16:00 02/25/18 22:12 ml/ Lidocaine HCl 30 ml/ PO 5 ml Nystatin 3,000,000 unit TID TARA Administration Docusate Sodium 100 mg 02/24/18 21:00 02/25/18 21:07 Colace PO Not Given BID [facility] Famotidine 20 mg 02/24/18 21:30 02/25/18 21:07 Pepcid IV 20 mg Q12HR [facility] Administration Folic Acid 0.5 mg 02/25/18 09:00 02/25/18 07:38 Folic Acid PO 0.5 mg DAILY TARA Administration Ciprofloxacin/Dextrose 400 mg/ 200 mls @ 160 mls/hr 02/24/18 21:00 02/25/18 21:06 IV Solution IVPB 160 mls/hr BID TARA Administration Metronidazole 500 mg/ IV 100 mls @ 100 mls/hr 02/24/18 22:00 02/25/18 22:12 Solution IVPB 100 mls/hr TID [facility]ARA Administration Diltiazem HCl 50 mg/ Sodium 50 mls @ 7.5 mls/hr 02/26/18 01:30 Chloride IV .Q6H40M [facility] Protocol 7.5 MG/HR Ketorolac Tromethamine 30 mg 02/24/18 16:53 02/25/18 22:19 Toradol IVP 03/01/18 16:54 30 mg Q6HR PRN Administration Moderate Pain Methylprednisolone Sodium Succinate 60 mg 02/25/18 16:00 02/26/18 00:02 Solu-Medrol IV 60 mg Q8HR [facility] Administration Metoprolol Tartrate 25 mg 02/27/18 08:00 Lopressor PO BID [facility] Miscellaneous Information 1 each 02/24/18 15:00 02/24/18 15:38 Rx Info: Iv Contrast Was Given MISCELLANE 02/26/18 15:00 1 each DAILY PRN Administration Per Protocol Naloxone HCl 0.2 mg 02/24/18 16:53 Narcan IV Q2M PRN Opioid Reversal Nystatin 500,000 unit 02/24/18 21:00 02/25/18 21:07 Mycostatin Oral Susp PO 500,000 unit BID [facility] Administration Ondansetron HCl 4 mg 02/24/18 16:58 02/26/18 01:30 Zofran Odt PO 4 mg Q4HR PRN Administration Nausea Pregabalin 75 mg 02/24/18 21:00 02/25/18 21:08 Lyrica PO 75 mg BID [facility] Administration Vitamin E 800 unit 02/25/18 09:00 02/25/18 07:38 Vitamin E PO 800 unit DAILY TARA Administration Objective - Vital Signs Vital signs: Vital Signs Temp 97 F L 02/26/18 16:00 Pulse 99 02/26/18 16:00 Resp 18 02/26/18 16:00 BP 105/68 02/26/18 16:00 Pulse Ox 99 02/26/18 16:00 Intake & Output 02/26/18 02/26/18 02/27/18 06:59 18:59 06:59 Intake Total 622.167 788 Output Total 200 Balance 422.167 788 Weight 98.88 kg Intake: Intake, IV Titration 62.167 68 Amount Diltiazem 50 mg In Sodium 54.667 68 Chloride 0.9% 40 ml @ 10 MG/HR 10 mls/hr IV .Q5H [facility] Rx#:[id number] Diltiazem 50 mg In Sodium 7.5 Chloride 0.9% 40 ml @ 7. 5 MG/HR 7.5 mls/hr IV . Q6H40M [facility] Rx#:[id number] Oral 560 720 Output: Urine 200 Other: Voiding Method Toilet Toilet - Exam PHYSICAL EXAMINATION: Patient is lying in the bed comfortably, no acute distress, awake alert and oriented.. HEENT: Normocephalic. Neck is supple. Pupils reactive. Nostrils clear. Oral cavity is moist. Ears reveal no drainage. Neck reveals no JVD, carotid bruits, or thyromegaly. CHEST EXAMINATION: Trachea is central. Symmetrical expansion. Bilateral diffuse rhonchi and coarse breath sounds CARDIAC: Normal S1, S2 with no gallops. No murmurs ABDOMEN: Soft. Bowel sounds normal. Hepatic mass palpable. No abdominal bruits. Extremities: reveal no edema. No clubbing or cyanosis Neurologically awake, alert, oriented x3 with well-coordinated movements. No focal deficits noted Skin: No rash or skin lesions. Psychiatric: Cooperative. Nonsuicidal Musculoskeletal: No joint swelling or deformity. Normal ra - Labs CBC & Chem 7: 02/26/18 07:02 02/26/18 07:02 Labs: Abnormal Lab Results - Last 24 Hours (Table) 02/25/18 02/26/18 02/26/18 Range/Units 07:04 07:02 07:02 RBC 2.98 L (4.30-5.90) m/uL Hgb 8.7 L (13.0-17.5) gm/dL Hct 28.2 L (39.0-53.0) % MCHC 30.7 L (31.0-37.0) g/dL RDW 18.2 H (11.5-15.5) % Lymphocytes # (Manual) 0.23 L (1.0-4.8) k/uL Metamyelocytes # (Man) 0.15 H (0) k/uL Myelocytes # (Manual) 0.15 H (0) k/uL Glucose 113 H (74-99) mg/dL TIBC 189 L (228-460) ug/dL Transferrin 139.0 L (204.0-354.0) mg/dL Ferritin 3295.1 H (22.0-322.0) ng/mL Microbiology - Last 24 Hours (Table) 02/24/18 15:29 Blood Culture - Preliminary Blood No Growth after 48 hours Assessment and Plan Assessment: Atrial fibrillation with RVR. Currently on Cardizem drip. Nausea vomiting abdominal pain possible chemo related gastritis. Resolved Acute pancreatitis with elevated lipase level 659 Large pericardial effusion. Increase in size from prior Possible pericarditis since patient is currently undergoing immunotherapy Recent history of colon wall thickening/colitis continued on antibiotics in the form of Cipro and Flagyl Metastatic lung cancer with metastases to liver/ and spine and hip currently on immunotherapy Normocytic anemia. Hemoglobin 7.4 Rule out iron deficiency Morbid obesity with BMI 36.3 Hypovolemic hyponatremia Mild to moderate protein calorie malnutrition DVT prophylaxis Plan: Patient denied ever symptomatically. IV fluids have been discontinued and started on oral diet.. 2-D echo was done. CT surgery recommends hydration and heart rate controlled with beta blockers. Symptomatic management for nausea and vomiting and pain management. Oncology was consulted. Due to immunotherapy suspected organ inflammation and patient was started on IV steroids Further recommendations based on the clinical course. Prognosis is poor with multiple medical problems and metastatic lung cancer. Discussed with family in detail. Time with Patient: Greater than 30
[2018-02-27] MEDS: DOCUSATE 100 MG CAP PO SCH ×3 (01:07→21:13)
[2018-02-27] MEDS: DILTIAZEM 50 MG in SODIUM CHLORIDE 0.9% 40 ML IV SCH ×4 (01:08→22:47)
[2018-02-27 07:15] LABS: Anion Gap 11 mmol/L; Blood Urea Nitrogen 16 mg/dL (9-20); Calcium 9.4 mg/dL (8.4-10.2); Carbon Dioxide 28 mmol/L (22-30); Chloride 103 mmol/L (98-107); Glucose 135 mg/dL (74-99); Potassium 4.6 mmol/L (3.5-5.1); Sodium 142 mmol/L (137-145)
[2018-02-27 07:40] LABS: Anisocytosis Slight; HCT 26.2 % (39.0-53.0); HGB 8.1 gm/dL (13.0-17.5); Hypochromasia Marked; MCH 28.9 pg (25.0-35.0); MCHC 30.7 g/dL (31.0-37.0); MCV 94.2 fL (80.0-100.0); Mean Platelet Volume 7.8; Platelet Count 222 k/uL (150-450); Poikilocytosis Slight; RBC 2.79 m/uL (4.30-5.90); RDW 17.8 % (11.5-15.5)
[2018-02-27] MEDS: CIPROFLOXACIN/DEXTROSE PMX 400 MG in DEXTROSE/WATER 1 200ML.BAG IVPB SCH ×2 (08:20→21:14)
[2018-02-27] MEDS: METOPROLOL TARTRATE 25 MG TAB PO SCH ×3 (08:26→21:13)
[2018-02-27] MEDS: CALCIUM CARBONATE 500 MG CHEWABLE PO SCH (08:26)
[2018-02-27] MEDS: methylPREDNISolone SOD SUCCI 125 MG/2 ML VIAL IV SCH ×3 (08:26→23:59)
[2018-02-27] MEDS: VITAMIN E (DL,TOCOPHERYL ACET) 400 UNIT CAP PO SCH (08:27)
[2018-02-27] MEDS: PREGABALIN 75 MG CAP PO SCH ×2 (08:27→21:13)
[2018-02-27] MEDS: NYSTATIN 100,000 UNIT/ML SUSP 500,000 UNIT/5 ML CUP PO SCH ×2 (08:27→21:12)
[2018-02-27] MEDS: FOLIC ACID 1 MG TAB PO SCH (08:27)
[2018-02-27] MEDS: HEPARIN SODIUM,PORCINE 5,000 UNIT/ML 1 ML VIAL SQ SCH ×2 (08:27→21:13)
[2018-02-27] MEDS: FAMOTIDINE 20 MG/2 ML VIAL IV SCH ×2 (08:27→21:13)
[2018-02-27] MEDS: MAG HYDROX/AL HYDROX/SIMETH 30 ML, LIDOCAINE VISCOUS 30 ML, NYSTATIN 100,000 UNIT/ML SU... PO SCH ×9 (08:28→23:52)
[2018-02-27] MEDS: CHOLECALCIFEROL 1,000 UNIT TAB PO SCH (08:35)
[2018-02-27] MEDS: HYDROcodone/APAP 10-325MG 1 EACH TAB PO PRN ×2 (08:38→19:42)
[2018-02-27] MEDS: ALPRAZolam 0.5 MG TAB PO PRN (08:38)
[2018-02-27 09:50] LABS: Band Neutrophils % 8 %; Eosinophils # (M) 0.09 k/uL (0-0.7); Metamyelocytes # (M) 0.26 k/uL (0); Metamyelocytes % 3 %; Myelocytes # (M) 0.09 k/uL (0); Myelocytes % 1 %; Neutrophils % (M) 79 %; Nucleated Red Blood Cells 2 /100 WBC (0-0); Total Cells Counted 200
[2018-02-27 09:52] LABS: Lymphocytes # (M) 0.43 k/uL (1.0-4.8); Monocytes # (M) 0.43 k/uL (0-1.0); WBC 8.6 k/uL (3.8-10.6)
[2018-02-27 09:53] LABS: Tear Drop Cells Present
[2018-02-27] MEDS: metroNIDAZOLE-NS PMX 500 MG in SALINE 1 100ML.BAG IVPB SCH ×3 (09:56→23:52)
[2018-02-27] MEDS: oxyCODONE ER 15 MG TAB.ER.12H PO SCH ×2 (10:10→21:13)
[2018-02-27] MEDS: BENZONATATE 100 MG CAP PO PRN ×2 (10:10→23:51)
--- NOTE | 2018-02-27 11:07 | P.PN ---
Subjective Progress Note Date: 02/27/18 Principal diagnosis: Lung cancer Progress note dated 02/27/2018 47-year-old male seen again today on February 27. He is awake and alert. No acute distress. Saturations are excellent on a couple liters of oxygen. Appetite is improved. He was moved up to the sixth floor because of atrial fibrillation and RVR. His appetite has been poor. That's improving. He has a history of acute gastritis likely secondary to his lung cancer drug, acute pancreatitis adnocystic carcinoma of the lung with skeletal and liver metastasis large pericardial effusion and history of tracheal stenosis status post stent placement. Objective - Vital Signs Vital signs: Vital Signs Temp 97.0 F L 02/27/18 08:00 Pulse 94 02/27/18 08:00 Resp 18 02/27/18 08:00 BP 130/82 02/27/18 08:00 Pulse Ox 100 02/27/18 08:00 Intake & Output 02/26/18 02/27/18 02/27/18 18:59 06:59 18:59 Intake Total 788 346.167 360 Balance 788 346.167 360 Weight 100.7 kg Intake: Intake, IV Titration 68 146.167 Amount Diltiazem 50 mg In Sodium 68 146.167 Chloride 0.9% 40 ml @ 10 MG/HR 10 mls/hr IV .Q5H [facility] Rx#:[id number] Oral 720 200 360 Other: Voiding Method Toilet Toilet # Voids 1 - Exam No acute distress, oriented 3. Nasal O2 in place HEENT examination is grossly unremarkable. Mucous membranes are moist. No oral lesions. Neck supple. Full range of motion. No adenopathy thyromegaly or neck vein distention. Cardiovascular examination reveals regular rhythm rate. S1-S2 normal. No S3 or S4. No discernible murmur noted. Lungs reveal bilateral rhonchi and a few crackles. Breath sounds equal. No wheezes. Abdomen soft with normal bowel sounds heard. No masses or tenderness. Extremities are intact. No cyanosis clubbing or edema. Skin is without rash or lesion. Neurologic examination is brief but nonfocal. - Labs CBC & Chem 7: 02/27/18 05:55 02/27/18 05:55 Labs: Abnormal Lab Results - Last 24 Hours (Table) 02/25/18 02/27/18 02/27/18 Range/Units 07:04 05:55 05:55 RBC 2.79 L (4.30-5.90) m/uL Hgb 8.1 L (13.0-17.5) gm/dL Hct 26.2 L (39.0-53.0) % MCHC 30.7 L (31.0-37.0) g/dL RDW 17.8 H (11.5-15.5) % Lymphocytes # (Manual) 0.43 L (1.0-4.8) k/uL Metamyelocytes # (Man) 0.26 H (0) k/uL Myelocytes # (Manual) 0.09 H (0) k/uL Nucleated RBCs 2 H (0-0) /100 WBC Creatinine 0.60 L (0.66-1.25) mg/dL Glucose 135 H (74-99) mg/dL TIBC 189 L (228-460) ug/dL Transferrin 139.0 L (204.0-354.0) mg/dL Ferritin 3295.1 H (22.0-322.0) ng/mL Microbiology - Last 24 Hours (Table) 02/24/18 15:29 Blood Culture - Preliminary Blood No Growth after 48 hours Assessment and Plan Assessment: Assessment Stage IV non-small cell lung cancer, with skeletal and liver metastasis Pericardial effusion Atrial fibrillation with RVR, improved Acute pancreatitis Acute gastritis with nausea and vomiting, secondary to atezolizumab Anemia of chronic disease Plan: Plan dated 02/27/2018 The patient's respiratory status is currently stable. He was moved up to the sixth floor because of atrial fibrillation and RVR. She was placed on Cardizem. His GI distress is improved. His appetite has improved. Labs are reviewed. Additional recommendations and suggestions are forthcoming. Prognosis is guarded. I did speak to the about CODE STATUS. Currently still a full code at this time. Time with Patient: Less than 30
--- NOTE | 2018-02-27 11:47 | P.PN ---
Subjective Progress Note Date: 02/27/18 Principal diagnosis: Pericardial effusion, metastatic lung cancer with metastasis to his skeletal system, and liver, acute pancreatitis, history of tracheal stenosis with subsequent stenting. Patient is sitting up to the bedside edge. He is in no acute distress. He reports that he feels much better today than he has in a while. He denies any complaints of pain or shortness of breath at this time. He is currently on room air with oxygen saturations 97%. Objective - Vital Signs Vital signs: Vital Signs Temp 97.0 F L 02/27/18 11:12 Pulse 81 02/27/18 11:12 Resp 16 02/27/18 11:12 BP 112/69 02/27/18 11:12 Pulse Ox 96 02/27/18 11:12 Intake & Output 02/26/18 02/27/18 02/27/18 18:59 06:59 18:59 Intake Total 788 346.167 410 Balance 788 346.167 410 Weight 100.7 kg Intake: Intake, IV Titration 68 146.167 50 Amount Diltiazem 50 mg In Sodium 68 146.167 50 Chloride 0.9% 40 ml @ 10 MG/HR 10 mls/hr IV .Q5H [facility] Rx#:[id number] Oral 720 200 360 Other: Voiding Method Toilet Toilet # Voids 1 - Constitutional General appearance: Present: cooperative, no acute distress, obese - Neck Details: No JVD present. - Respiratory Details: Lung sounds with expiratory wheezes throughout. Respirations are symmetrical and nonlabored. Oxygen saturation are 97% on room air. - Cardiovascular Details: Regular rhythm and rate. S1 and S2 present. Negative for S3, gallop or murmur. Bedside telemetry showing normal sinus rhythm heart rate 89. Cardizem drip remains infusing at 10 mg per hour. - Gastrointestinal Gastrointestinal Comment(s): Abdomen is soft, nontender and nondistended. Obese. Active bowel sounds all 4 abdominal quadrants. Tolerating oral intake. No nausea. - Genitourinary Genitourinary Comment(s): Voiding clear yellow urine. - Integumentary Integumentary Comment(s): Skin is warm and dry. No clubbing or cyanosis present. No rash or abnormal pigmentation present. - Neurologic Neurologic: Present: CNII-XII intact - Musculoskeletal Musculoskeletal: Present: gait normal, strength equal bilaterally - Psychiatric Psychiatric: Present: A&O x's 3, appropriate affect, intact judgment & insight - Allied health notes Allied health notes reviewed: nursing - Labs CBC & Chem 7: 02/27/18 05:55 02/27/18 05:55 Labs: Abnormal Lab Results - Last 24 Hours (Table) 02/25/18 02/27/18 02/27/18 Range/Units 07:04 05:55 05:55 RBC 2.79 L (4.30-5.90) m/uL Hgb 8.1 L (13.0-17.5) gm/dL Hct 26.2 L (39.0-53.0) % MCHC 30.7 L (31.0-37.0) g/dL RDW 17.8 H (11.5-15.5) % Lymphocytes # (Manual) 0.43 L (1.0-4.8) k/uL Metamyelocytes # (Man) 0.26 H (0) k/uL Myelocytes # (Manual) 0.09 H (0) k/uL Nucleated RBCs 2 H (0-0) /100 WBC Creatinine 0.60 L (0.66-1.25) mg/dL Glucose 135 H (74-99) mg/dL Transferrin 139.0 L (204.0-354.0) mg/dL Microbiology - Last 24 Hours (Table) 02/24/18 15:29 Blood Culture - Preliminary Blood No Growth after 48 hours Assessment and Plan (1) Lung cancer Current Visit: Yes Status: Acute Code(s): C34.90 - MALIGNANT NEOPLASM OF UNSP PART OF UNSP BRONCHUS OR LUNG SNOMED Code(s): 935469519 (2) History of immunotherapy Current Visit: Yes Status: Acute Code(s): Z92.89 - PERSONAL HISTORY OF OTHER MEDICAL TREATMENT SNOMED Code(s): 292928858 (3) Liver metastases Current Visit: Yes Status: Acute Code(s): C78.7 - SECONDARY MALIG NEOPLASM OF LIVER AND INTRAHEPATIC BILE DUCT SNOMED Code(s): 63597535 (4) Pericardial effusion Current Visit: Yes Status: Acute Code(s): I31.3 - PERICARDIAL EFFUSION ( NONINFLAMMATORY) SNOMED Code(s): 839607020 Plan: 1. Continue supportive care. 2. Pulmonary management management per Dr. Freeman recommendations. 3. Intensive spirometry every hour while awake. 4. Continue to maximize medical therapy, continue beta danis. No plan for surgical intervention at this time. 5. Further recommendations to follow based on the patient's clinical course. Time with Patient: Greater than 30
--- NOTE | 2018-02-27 12:37 | P.PN ---
Subjective Progress Note Date: 02/27/18 Mr. Suh is a pleasant 47-year-old male past medical history significant for metastatic stage 4 lung cancer with mets to the liver and spine. He is currently undergoing immuno-therapy. We have been asked to see the patient in consultation for tachycardia. CT of the abdomen/pelvis was obtained and revealed large hepatic mass with numerous additional hepatic masses suspicious for malignancy that are stable from prior exam with widespread bony metastases. Increasing pericadial effusion seen as well. An echocardiogram was obtained which reveals a large generalized pericardial effusion with no evidence of right ventricular tamponade however unable to clearly determine if tamponade evident on right atrium. Ejection fraction 50-55%, mildly dilated left atrium, mild MR and mild TR. Patient was seen and examined this morning, continues to feel mildly short of breath. Blood pressure 112/60 with a heart rate in the 80s, 96% on room air. Patient got into atrial fibrillation, converted to sinus and remains in normal sinus rhythm at this time. Objective - Vital Signs Vital signs: Vital Signs Temp 97.0 F L 02/27/18 11:12 Pulse 81 02/27/18 12:00 Resp 16 02/27/18 12:00 BP 112/69 02/27/18 11:12 Pulse Ox 96 02/27/18 11:12 Intake & Output 02/26/18 02/27/18 02/27/18 18:59 06:59 18:59 Intake Total 788 346.167 410 Balance 788 346.167 410 Weight 100.7 kg Intake: Intake, IV Titration 68 146.167 50 Amount Diltiazem 50 mg In Sodium 68 146.167 50 Chloride 0.9% 40 ml @ 10 MG/HR 10 mls/hr IV .Q5H [facility] Rx#:[id number] Oral 720 200 360 Other: Voiding Method Toilet Toilet # Voids 1 - Exam PHYSICAL EXAMINATION: HEENT: Head is atraumatic, normocephalic. Pupils equal, round. Neck is supple. There is elevated jugular venous pressure. HEART EXAMINATION: Heart S1, S2 normal. No murmur or gallop heard. CHEST EXAMINATION: Lungs reveal a few scattered wheezes throughout. ABDOMEN: Soft, nontender. Bowel sounds are heard. No organomegaly noted. EXTREMITIES: 2+ peripheral pulses with no evidence of peripheral edema and no calf tenderness noted. NEUROLOGIC patient is awake, alert and oriented -3. . - Labs CBC & Chem 7: 02/27/18 05:55 02/27/18 05:55 Labs: Abnormal Lab Results - Last 24 Hours (Table) 02/27/18 02/27/18 Range/Units 05:55 05:55 RBC 2.79 L (4.30-5.90) m/uL Hgb 8.1 L (13.0-17.5) gm/dL Hct 26.2 L (39.0-53.0) % MCHC 30.7 L (31.0-37.0) g/dL RDW 17.8 H (11.5-15.5) % Lymphocytes # (Manual) 0.43 L (1.0-4.8) k/uL Metamyelocytes # (Man) 0.26 H (0) k/uL Myelocytes # (Manual) 0.09 H (0) k/uL Nucleated RBCs 2 H (0-0) /100 WBC Creatinine 0.60 L (0.66-1.25) mg/dL Glucose 135 H (74-99) mg/dL Microbiology - Last 24 Hours (Table) 02/24/18 15:29 Blood Culture - Preliminary Blood No Growth after 48 hours Assessment and Plan Plan: Assessment and plan #1 large pericardial effusion with no evidence of tamponade not, we will repeat the echocardiogram with Doppler study in the morning, patient may require pericardial window #2 stage IV liver cancer with metastases to the bone and liver. #3 paroxysmal atrial fibrillation, currently in normal sinus rhythm. #4 history of nicotine dependence, quit 11 months ago. #5 acute pancreatitis Plan From cardiology's perspective, we'll continue patient on his current medications. We will repeat a limited echocardiogram with Doppler study tomorrow to assess pericardial effusion. DNP note has been reviewed, I agree with a documented findings and plan of care. Patient was seen and examined.
[2018-02-27 16:23] LABS: Glucose,Whole Blood 186 mg/dL (75-99)
[2018-02-27] MEDS: INSULIN ASPART 100 UNIT/ML 1 ML 10 ML VIAL SQ SCH ×2 (17:31→21:36)
[2018-02-27 21:07] LABS: Glucose,Whole Blood 141 mg/dL (75-99)
[2018-02-27 21:53] VITALS: RESP 16
--- NOTE | 2018-02-28 01:06 | P.PN ---
Subjective Progress Note Date: 02/27/18 Principal diagnosis: Nausea vomiting or abdominal pain Pericardial effusion large Patient is a 47-year-old male with PMH of metastatic lung CA currently on immunotherapy (last given 2 weeks prior) presenting with abdominal pain, nausea , and vomiting. Patient came to ER yesterday with complaints of nausea vomiting. Abdominal x-ray was done which showed an ileus. This morning the patient continued to have vomiting and called his oncologist. Spoke with CARLOS James for patient's Oncologist, Dr. Shanks, states they're concerned the patient's recent immunotherapy that he was having inflammation of the bowel. She denies any F/C, chest pain, or shortness of breath. Denied any complaints of chest pain or shortness of breath. Patient says that his been tachycardic for the past few months. CT of abdomen pelvis showed left hepatic mass with numerous additional hepatic masses suspicious for malignancy. Stable from the prior exam Increased pericardial effusion Widespread bony metastasis Nonspecific bowel gas pattern Bibasilar subsegmental atelectasis 02/25/2018 Patient is awake this morning but seems very drowsy. Otherwise heart rate went up to 180s this morning but is currently around 115. Patient was seen by cardiology pulmonary and CT surgery as well as oncology. Computed tomography scan recommends conservative management and heart rate controlled. Due to immunotherapy suspected all other information including pericarditis. Patient was started on IV steroids. Due to poor prognosis discussed with the patient and family regarding CODE STATUS. Patient currently wants CPR to be done. Not sure whether he has the pain secondary to the problem his been having. Discussed with at bedside as well. No fever no chills otherwise. No complaints of chest pain. No worsening shortness of breath. Abdominal pain improved. Patient will be started back on oral diet and advance as tolerated.. Prognosis is poor. 02/26/2018 Patient went into atrial fibrillation rapid ventricular rate and was started on Cardizem drip. Heart rate is better controlled. Continued on metoprolol as well. Otherwise abdominal pain and nausea vomiting resolved. Patient was started on diet which has been advanced. Patient is being followed by oncology pulmonary and cardiology as well as CT surgery. No fever no chills. Anticipate discharge in next 24-48 hours. 02/27/2018 Patient symptomatically much improved now. No nausea vomiting or abdominal pain. Tolerating oral diet otherwise. Heart rate is well controlled now. Repeat 2-D echocardiogram was ordered to assess for large pericardial effusion during previous study. No fever no chills. All other review of systems negative except the above All other review of systems negative as above Active Medications Generic Name Dose Route Start Last Admin Trade Name Freq PRN Reason Stop Dose Admin Acetaminophen 650 mg 02/24/18 16:53 Tylenol Tab PO Q6HR PRN Mild Pain or Fever > 100.5 Hydrocodone Bitart/Acetaminophen 1 each 02/24/18 16:53 02/26/18 01:30 [place] 5-325 PO 1 each Q4HR PRN Administration Moderate Pain Alprazolam 0.5 mg 02/25/18 09:28 02/26/18 00:13 Xanax PO 0.5 mg TID PRN Administration Anxiety Benzonatate 100 mg 02/24/18 16:59 02/26/18 00:12 Tessalon Perles PO 100 mg TID PRN Administration Cough Calcium Carbonate/Glycine 500 mg 02/25/18 09:00 02/25/18 07:39 Tums PO 500 mg DAILY TARA Administration Cholecalciferol 1,000 unit 02/25/18 09:00 02/25/18 07:39 Vitamin D3 PO 1,000 unit DAILY TARA Administration Al Hydroxide/Mg Hydroxide 30 0 ml 02/24/18 16:00 02/25/18 22:12 ml/ Lidocaine HCl 30 ml/ PO 5 ml Nystatin 3,000,000 unit TID TARA Administration Docusate Sodium 100 mg 02/24/18 21:00 02/25/18 21:07 Colace PO Not Given BID TARA Famotidine 20 mg 02/24/18 21:30 02/25/18 21:07 Pepcid IV 20 mg Q12HR TARA Administration Folic Acid 0.5 mg 02/25/18 09:00 02/25/18 07:38 Folic Acid PO 0.5 mg DAILY TARA Administration Ciprofloxacin/Dextrose 400 mg/ 200 mls @ 160 mls/hr 02/24/18 21:00 02/25/18 21:06 IV Solution IVPB 160 mls/hr BID TARA Administration Metronidazole 500 mg/ IV 100 mls @ 100 mls/hr 02/24/18 22:00 02/25/18 22:12 Solution IVPB 100 mls/hr TID TARA Administration Diltiazem HCl 50 mg/ Sodium 50 mls @ 7.5 mls/hr 02/26/18 01:30 Chloride IV .Q6H40M [facility] Protocol 7.5 MG/HR Ketorolac Tromethamine 30 mg 02/24/18 16:53 02/25/18 22:19 Toradol IVP 03/01/18 16:54 30 mg Q6HR PRN Administration Moderate Pain Methylprednisolone Sodium Succinate 60 mg 02/25/18 16:00 02/26/18 00:02 Solu-Medrol IV 60 mg Q8HR TARA Administration Metoprolol Tartrate 25 mg 02/27/18 08:00 Lopressor PO BID [facility] Miscellaneous Information 1 each 02/24/18 15:00 02/24/18 15:38 Rx Info: Iv Contrast Was Given MISCELLANE 02/26/18 15:00 1 each DAILY PRN Administration Per Protocol Naloxone HCl 0.2 mg 02/24/18 16:53 Narcan IV Q2M PRN Opioid Reversal Nystatin 500,000 unit 02/24/18 21:00 02/25/18 21:07 Mycostatin Oral Susp PO 500,000 unit BID TARA Administration Ondansetron HCl 4 mg 02/24/18 16:58 02/26/18 01:30 Zofran Odt PO 4 mg Q4HR PRN Administration Nausea Pregabalin 75 mg 02/24/18 21:00 02/25/18 21:08 Lyrica PO 75 mg BID TARA Administration Vitamin E 800 unit 02/25/18 09:00 02/25/18 07:38 Vitamin E PO 800 unit DAILY TARA Administration Objective - Vital Signs Vital signs: Vital Signs Temp 97.0 F L 02/27/18 11:12 Pulse 81 02/27/18 12:00 Resp 16 02/27/18 12:00 BP 112/69 02/27/18 11:12 Pulse Ox 96 02/27/18 11:12 Intake & Output 02/26/18 02/27/18 02/27/18 18:59 06:59 18:59 Intake Total 788 346.167 650 Balance 788 346.167 650 Weight 100.7 kg Intake: Intake, IV Titration 68 146.167 50 Amount Diltiazem 50 mg In Sodium 68 146.167 50 Chloride 0.9% 40 ml @ 10 MG/HR 10 mls/hr IV .Q5H [facility] Rx#:[id number] Oral 720 200 600 Other: Voiding Method Toilet Toilet # Voids 1 - Exam PHYSICAL EXAMINATION: Patient is lying in the bed comfortably, no acute distress, awake alert and oriented.. HEENT: Normocephalic. Neck is supple. Pupils reactive. Nostrils clear. Oral cavity is moist. Ears reveal no drainage. Neck reveals no JVD, carotid bruits, or thyromegaly. CHEST EXAMINATION: Trachea is central. Symmetrical expansion. Bilateral air entry much improvement and clear to auscultation CARDIAC: Normal S1, S2 with no gallops. No murmurs ABDOMEN: Soft. Bowel sounds normal. Hepatic mass palpable. No abdominal bruits. Extremities: reveal no edema. No clubbing or cyanosis Neurologically awake, alert, oriented x3 with well-coordinated movements. No focal deficits noted Skin: No rash or skin lesions. Psychiatric: Cooperative. Nonsuicidal Musculoskeletal: No joint swelling or deformity. Normal range of motion - Labs CBC & Chem 7: 02/27/18 05:55 02/27/18 05:55 Labs: Abnormal Lab Results - Last 24 Hours (Table) 02/27/18 02/27/18 Range/Units 05:55 05:55 RBC 2.79 L (4.30-5.90) m/uL Hgb 8.1 L (13.0-17.5) gm/dL Hct 26.2 L (39.0-53.0) % MCHC 30.7 L (31.0-37.0) g/dL RDW 17.8 H (11.5-15.5) % Lymphocytes # (Manual) 0.43 L (1.0-4.8) k/uL Metamyelocytes # (Man) 0.26 H (0) k/uL Myelocytes # (Manual) 0.09 H (0) k/uL Nucleated RBCs 2 H (0-0) /100 WBC Creatinine 0.60 L (0.66-1.25) mg/dL Glucose 135 H (74-99) mg/dL Microbiology - Last 24 Hours (Table) 02/24/18 15:29 Blood Culture - Preliminary Blood No Growth after 48 hours Assessment and Plan Assessment: Atrial fibrillation with RVR. Currently off Cardizem drip. Continue with metoprolol. Nausea vomiting abdominal pain possible chemo related gastritis. Resolved Acute pancreatitis with elevated lipase level 659. Resolved now Large pericardial effusion. Increase in size from prior. Repeat 2-D echocardiogram on 57 to the 19 Possible pericarditis since patient is currently undergoing immunotherapy Recent history of colon wall thickening/colitis continued on antibiotics in the form of Cipro and Flagyl Metastatic lung cancer with metastases to liver/ and spine and hip currently on immunotherapy Normocytic anemia. Hemoglobin 7.4 Rule out iron deficiency Morbid obesity with BMI 36.3 Hypovolemic hyponatremia Mild to moderate protein calorie malnutrition DVT prophylaxis Plan: Patient denied ever symptomatically. IV fluids have been discontinued and started on oral diet.. 2-D echo was done. CT surgery recommends hydration and heart rate controlled with beta blockers. Symptomatic management for nausea and vomiting and pain management. Oncology was consulted. Due to immunotherapy suspected organ inflammation and patient was started on IV steroids Further recommendations based on the clinical course. Prognosis is poor with multiple medical problems and metastatic lung cancer. Discussed with family in detail. Time with Patient: Greater than 30
[2018-02-28] MEDS: DILTIAZEM 50 MG in SODIUM CHLORIDE 0.9% 40 ML IV SCH ×3 (03:27→13:02)
[2018-02-28] MEDS: HYDROcodone/APAP 10-325MG 1 EACH TAB PO PRN ×2 (03:45→08:44)
[2018-02-28 06:20] LABS: Glucose,Whole Blood 134 mg/dL (75-99)
[2018-02-28] MEDS: INSULIN ASPART 100 UNIT/ML 1 ML 10 ML VIAL SQ SCH ×3 (06:44→17:19)
[2018-02-28] MEDS: CALCIUM CARBONATE 500 MG CHEWABLE PO SCH (08:23)
[2018-02-28] MEDS: NYSTATIN 100,000 UNIT/ML SUSP 500,000 UNIT/5 ML CUP PO SCH (08:24)
[2018-02-28] MEDS: VITAMIN E (DL,TOCOPHERYL ACET) 400 UNIT CAP PO SCH (08:24)
[2018-02-28] MEDS: PREGABALIN 75 MG CAP PO SCH (08:24)
[2018-02-28] MEDS: CHOLECALCIFEROL 1,000 UNIT TAB PO SCH (08:24)
[2018-02-28] MEDS: MAG HYDROX/AL HYDROX/SIMETH 30 ML, LIDOCAINE VISCOUS 30 ML, NYSTATIN 100,000 UNIT/ML SU... PO SCH ×6 (08:24→16:20)
[2018-02-28] MEDS: METOPROLOL TARTRATE 25 MG TAB PO SCH (08:24)
[2018-02-28] MEDS: FOLIC ACID 1 MG TAB PO SCH (08:24)
[2018-02-28] MEDS: DOCUSATE 100 MG CAP PO SCH (08:24)
[2018-02-28] MEDS: metroNIDAZOLE-NS PMX 500 MG in SALINE 1 100ML.BAG IVPB SCH ×2 (08:25→16:19)
[2018-02-28] MEDS: HEPARIN SODIUM,PORCINE 5,000 UNIT/ML 1 ML VIAL SQ SCH (08:25)
[2018-02-28] MEDS: methylPREDNISolone SOD SUCCI 125 MG/2 ML VIAL IV SCH ×2 (08:25→16:19)
[2018-02-28] MEDS: FAMOTIDINE 20 MG/2 ML VIAL IV SCH (08:26)
[2018-02-28] MEDS: BENZONATATE 100 MG CAP PO PRN (08:34)
[2018-02-28] MEDS: oxyCODONE ER 15 MG TAB.ER.12H PO SCH ×2 (08:39→10:48)
[2018-02-28] MEDS ORDERED: PARoxetine 20 MG TAB PO STA (09:51)
[2018-02-28] MEDS: CIPROFLOXACIN/DEXTROSE PMX 400 MG in DEXTROSE/WATER 1 200ML.BAG IVPB SCH (09:52)
[2018-02-28 11:15] VITALS: BMI 37.3
[2018-02-28 11:33] LABS: ALT 31 U/L (21-72); AST 26 U/L (17-59); Albumin 2.7 g/dL (3.5-5.0); Alkaline Phosphatase 263 U/L (38-126); Anion Gap 10 mmol/L; Blood Urea Nitrogen 17 mg/dL (9-20); Calcium 9.1 mg/dL (8.4-10.2); Carbon Dioxide 26 mmol/L (22-30); Chloride 104 mmol/L (98-107); Glucose 163 mg/dL (74-99); Lipase 666 U/L (23-300); Potassium 4.3 mmol/L (3.5-5.1); Sodium 140 mmol/L (137-145); Total Bilirubin 0.5 mg/dL (0.2-1.3)
[2018-02-28 11:43] LABS: Anisocytosis Slight; HCT 27.2 % (39.0-53.0); HGB 8.2 gm/dL (13.0-17.5); Hypochromasia Marked; MCH 29.1 pg (25.0-35.0); MCHC 30.3 g/dL (31.0-37.0); MCV 96.2 fL (80.0-100.0); Macrocytosis Slight; Platelet Count 223 k/uL (150-450); Poikilocytosis Slight; RBC 2.83 m/uL (4.30-5.90); RDW 18.4 % (11.5-15.5)
[2018-02-28 11:56] LABS: Glucose,Whole Blood 161 mg/dL (75-99)
[2018-02-28 12:07] LABS: Hemoglobin A1C 5.3 % (4.0-6.0)
[2018-02-28 12:52] LABS: Band Neutrophils % 4 %; Metamyelocytes # (M) 0.31 k/uL (0); Metamyelocytes % 3 %; Monocytes # (M) 0.31 k/uL (0-1.0); Myelocytes % 1 %; Neutrophils % (M) 90 %; Nucleated Red Blood Cells 2 /100 WBC (0-0); Rouleaux Present; Total Cells Counted 200; Toxic Granulation Present; WBC 10.4 k/uL (3.8-10.6)
--- NOTE | 2018-02-28 12:59 | P.PN ---
Subjective Progress Note Date: 02/28/18 Principal diagnosis: Metastatic Lung Cancer on Immunotherapy Patient seen and examined this am, He is doing better. Daughters and at bedside, thrush is resolved, nausea and vomiting resolved. Objective - Vital Signs Vital signs: Vital Signs Temp 96.6 F L 02/28/18 12:00 Pulse 80 02/28/18 12:00 Resp 16 02/28/18 12:00 BP 101/67 02/28/18 12:00 Pulse Ox 98 02/28/18 12:00 Intake & Output 02/27/18 02/28/18 02/28/18 18:59 06:59 18:59 Intake Total 700 46.667 289.667 Balance 700 46.667 289.667 Weight 101.8 kg 101.8 kg Intake: Intake, IV Titration 100 46.667 49.667 Amount Diltiazem 50 mg In Sodium 100 46.667 49.667 Chloride 0.9% 40 ml @ 10 MG/HR 10 mls/hr IV .Q5H [facility] Rx#:[id number] Oral 600 240 Other: Voiding Method Toilet - Constitutional General appearance: Present: average body habitus, no acute distress - EENT Eyes: Present: EOMI, PERRLA, dentition normal ENT: Present: NA/AT, normal oropharynx - Respiratory Respiratory: bilateral: diminished (Bibasiliar) - Cardiovascular Rhythm: regular Heart sounds: normal: S1, S2 - Gastrointestinal General gastrointestinal: Present: normal bowel sounds, soft - Integumentary Integumentary: Present: normal, pale - Neurologic Neurologic: Present: CNII-XII intact - Musculoskeletal Musculoskeletal: Present: gait normal, generalized weakness, strength equal bilaterally - Psychiatric Psychiatric: Present: A&O x's 3, appropriate affect, intact judgment & insight - Labs CBC & Chem 7: 02/28/18 10:39 02/28/18 10:39 Labs: Abnormal Lab Results - Last 24 Hours (Table) 02/27/18 02/27/18 02/28/18 Range/Units 16:17 21:05 06:19 RBC (4.30-5.90) m/uL Hgb (13.0-17.5) gm/dL Hct (39.0-53.0) % MCHC (31.0-37.0) g/dL RDW (11.5-15.5) % Creatinine (0.66-1.25) mg/dL Glucose (74-99) mg/dL POC Glucose (mg/dL) 186 H 141 H 134 H (75-99) mg/dL Alkaline Phosphatase (38-126) U/L Total Protein (6.3-8.2) g/dL Albumin (3.5-5.0) g/dL Lipase (23-300) U/L 02/28/18 02/28/18 02/28/18 Range/Units 10:39 10:39 11:47 RBC 2.83 L (4.30-5.90) m/uL Hgb 8.2 L (13.0-17.5) gm/dL Hct 27.2 L (39.0-53.0) % MCHC 30.3 L (31.0-37.0) g/dL RDW 18.4 H (11.5-15.5) % Creatinine 0.53 L (0.66-1.25) mg/dL Glucose 163 H (74-99) mg/dL POC Glucose (mg/dL) 161 H (75-99) mg/dL Alkaline Phosphatase 263 H (38-126) U/L Total Protein 5.0 L (6.3-8.2) g/dL Albumin 2.7 L (3.5-5.0) g/dL Lipase 666 H (23-300) U/L Microbiology - Last 24 Hours (Table) 02/24/18 15:29 Blood Culture - Preliminary Blood No Growth after 72 hours Assessment and Plan Plan: Assessment and Recommendations: 1. 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 Persistent Nausea and Vomiting - Enteritis versus Ileus - Improving 3. Pericardial Effusion: - ?Component of Pericarditis - With Steroid treatment should see improvement if secondary to inflammatory response from immunotherapy, repeat echocardiogram today. 4. Elevated Lipase - Pancreatitis - Bowel Rest and Supportive Care - Recheck CMP and Lipase With the treatment of immunotherapy a possible side effect of inflammation to any organ is considered. Treatment with High dose Steroids is indicated in this picture and with the picture of inflammatory process seen in the GI tract, Pancreas, and Possible Heart it is resonable to proceed with High Dose Steroids and Hold further Immunotherapy Until resolution of the inflammation. Another possibility of this clinical picture is progressive disease. [place] was [place] of state previously so comparision of imaging in [place] to recent imaging will help to differentiate this. This has been discussed in full with the patient and and an understanding stated. Continue supportive care, abx, and steroids at this time. 5. DISPO PLAN - Will Convert to PO Steroid taper to continue at discharge Physician Attestation: I have completed the full history and physical on this patient and discussed and agree with above note by Erika Campos NP, Dictated as a scribe.
--- NOTE | 2018-02-28 13:40 | P.PN ---
Subjective Progress Note Date: 02/28/18 Principal diagnosis: Pericardial effusion, metastatic lung cancer with metastasis to his skeletal system, and liver, acute pancreatitis, history of tracheal stenosis with subsequent stenting. Patient is ambulating in the [facility] hallway. He is in no acute distress. He reports that he feels much better each day and feels like he is ready to be discharged home. He denies any complaints of pain or shortness of breath at this time. He is currently on room air with oxygen saturations 99%. Objective - Vital Signs Vital signs: Vital Signs Temp 96.6 F L 02/28/18 12:00 Pulse 80 02/28/18 12:00 Resp 16 02/28/18 12:00 BP 101/67 02/28/18 12:00 Pulse Ox 98 02/28/18 12:00 Intake & Output 02/27/18 02/28/18 02/28/18 18:59 06:59 18:59 Intake Total 700 46.667 575.834 Balance 700 46.667 575.834 Weight 101.8 kg 101.8 kg Intake: Intake, IV Titration 100 46.667 95.834 Amount Diltiazem 50 mg In Sodium 100 46.667 95.834 Chloride 0.9% 40 ml @ 10 MG/HR 10 mls/hr IV .Q5H [facility] Rx#:[id number] Oral 600 480 Other: Voiding Method Toilet - Constitutional General appearance: Present: cooperative, no acute distress, obese - Respiratory Details: Lung sounds with few scattered rhonchi throughout, diminished to his bilateral bases. Respirations are symmetrical and nonlabored. Oxygen saturation are 99% on room air. He is achieving 2250 mL on his incentive spirometry. - Cardiovascular Details: Regular rhythm and rate. S1 and S2 present, negative for S3, gallop or murmur. Remote telemetry showing normal sinus rhythm heart rate 76. No edema present. Cardizem drip remains infusing at 10 mg per hour. - Gastrointestinal Gastrointestinal Comment(s): Abdomen is soft, nontender nondistended. Obese. Active bowel sounds all 4 abdominal quadrants. Tolerating oral intake. Passing flatus. - Genitourinary Genitourinary Comment(s): Voiding clear krystal urine. - Integumentary Integumentary Comment(s): Skin is warm and dry. No clubbing or cyanosis present. No abnormal pigmentation or rash present. - Neurologic Neurologic: Present: CNII-XII intact - Musculoskeletal Musculoskeletal: Present: gait normal, strength equal bilaterally - Psychiatric Psychiatric: Present: A&O x's 3, appropriate affect, intact judgment & insight - Allied health notes Allied health notes reviewed: nursing (2-D echocardiogram results reviewed.) - Labs CBC & Chem 7: 02/28/18 10:39 02/28/18 10:39 Labs: Abnormal Lab Results - Last 24 Hours (Table) 02/27/18 02/27/18 02/28/18 Range/Units 16:17 21:05 06:19 RBC (4.30-5.90) m/uL Hgb (13.0-17.5) gm/dL Hct (39.0-53.0) % MCHC (31.0-37.0) g/dL RDW (11.5-15.5) % Neutrophils # (Manual) (1.3-7.7) k/uL Lymphocytes # (Manual) (1.0-4.8) k/uL Metamyelocytes # (Man) (0) k/uL Myelocytes # (Manual) (0) k/uL Nucleated RBCs (0-0) /100 WBC Creatinine (0.66-1.25) mg/dL Glucose (74-99) mg/dL POC Glucose (mg/dL) 186 H 141 H 134 H (75-99) mg/dL Alkaline Phosphatase (38-126) U/L Total Protein (6.3-8.2) g/dL Albumin (3.5-5.0) g/dL Lipase (23-300) U/L 02/28/18 02/28/18 02/28/18 Range/Units 10:39 10:39 11:47 RBC 2.83 L (4.30-5.90) m/uL Hgb 8.2 L (13.0-17.5) gm/dL Hct 27.2 L (39.0-53.0) % MCHC 30.3 L (31.0-37.0) g/dL RDW 18.4 H (11.5-15.5) % Neutrophils # (Manual) 9.70 H (1.3-7.7) k/uL Lymphocytes # (Manual) 0.10 L (1.0-4.8) k/uL Metamyelocytes # (Man) 0.31 H (0) k/uL Myelocytes # (Manual) 0.10 H (0) k/uL Nucleated RBCs 2 H (0-0) /100 WBC Creatinine 0.53 L (0.66-1.25) mg/dL Glucose 163 H (74-99) mg/dL POC Glucose (mg/dL) 161 H (75-99) mg/dL Alkaline Phosphatase 263 H (38-126) U/L Total Protein 5.0 L (6.3-8.2) g/dL Albumin 2.7 L (3.5-5.0) g/dL Lipase 666 H (23-300) U/L Microbiology - Last 24 Hours (Table) 02/24/18 15:29 Blood Culture - Preliminary Blood No Growth after 72 hours Assessment and Plan (1) Lung cancer Current Visit: Yes Status: Acute Code(s): C34.90 - MALIGNANT NEOPLASM OF UNSP PART OF UNSP BRONCHUS OR LUNG SNOMED Code(s): 568364285 (2) History of immunotherapy Current Visit: Yes Status: Acute Code(s): Z92.89 - PERSONAL HISTORY OF OTHER MEDICAL TREATMENT SNOMED Code(s): 452378560 (3) Liver metastases Current Visit: Yes Status: Acute Code(s): C78.7 - SECONDARY MALIG NEOPLASM OF LIVER AND INTRAHEPATIC BILE DUCT SNOMED Code(s): 27969980 (4) Pericardial effusion Current Visit: Yes Status: Acute Code(s): I31.3 - PERICARDIAL EFFUSION ( NONINFLAMMATORY) SNOMED Code(s): 249354894 Plan: 1. Continue supportive care. 2. Pulmonary management management per Dr. Jimenez's recommendations. 3. Intensive spirometry every hour while awake. 4. Continue to maximize medical therapy, continue beta danis. No plan for surgical intervention at this time. Patient's repeat echo demonstrating a small pericardial effusion. No surgical intervention recommended at this time. We will follow the patient on a as needed basis. Time with Patient: Greater than 30
--- NOTE | 2018-02-28 15:07 | P.PN ---
Subjective Progress Note Date: 02/28/18 Mr. Suh is a pleasant 47-year-old male past medical history significant for metastatic stage 4 lung cancer with mets to the liver and spine. He is currently undergoing immuno-therapy. We have been asked to see the patient in consultation for tachycardia. CT of the abdomen/pelvis was obtained and revealed large hepatic mass with numerous additional hepatic masses suspicious for malignancy that are stable from prior exam with widespread bony metastases. Increasing pericadial effusion seen as well. An echocardiogram was obtained which reveals a large generalized pericardial effusion with no evidence of right ventricular tamponade however unable to clearly determine if tamponade evident on right atrium. Ejection fraction 50-55%, mildly dilated left atrium, mild MR and mild TR. Patient was seen and examined this morning, continues to feel mildly short of breath. Blood pressure 112/60 with a heart rate in the 80s, 96% on room air. Patient got into atrial fibrillation, converted to sinus and remains in normal sinus rhythm at this time. 02/28/2018 Patient was seen and examined this morning, feeling well overall, denies any chest pain, breathing has been stable. He has been up ambulating without any difficulty. Patient was still on a Cardizem drip, he has remained in normal sinus rhythm. We will discontinue the drip today. Echocardiogram with Doppler study was performed which revealed a small pericardial effusion. The pressure 100/60, heart rate in the 80s. Hemoglobin 8.2, platelet count 223, sodium 140, potassium 4.3, BUN 17, creatinine 0.5. Objective - Vital Signs Vital signs: Vital Signs Temp 96.6 F L 02/28/18 12:00 Pulse 80 02/28/18 12:00 Resp 16 02/28/18 12:00 BP 101/67 02/28/18 12:00 Pulse Ox 98 02/28/18 12:00 Intake & Output 02/27/18 02/28/18 02/28/18 18:59 06:59 18:59 Intake Total 700 46.667 575.834 Balance 700 46.667 575.834 Weight 101.8 kg 101.8 kg Intake: Intake, IV Titration 100 46.667 95.834 Amount Diltiazem 50 mg In Sodium 100 46.667 95.834 Chloride 0.9% 40 ml @ 10 MG/HR 10 mls/hr IV .Q5H [facility] Rx#:[id number] Oral 600 480 Other: Voiding Method Toilet - Exam PHYSICAL EXAMINATION: HEENT: Head is atraumatic, normocephalic. Pupils equal, round. Neck is supple. There is elevated jugular venous pressure. HEART EXAMINATION: Heart S1, S2 normal. No murmur or gallop heard. CHEST EXAMINATION: Lungs reveal a few scattered wheezes throughout. ABDOMEN: Soft, nontender. Bowel sounds are heard. No organomegaly noted. EXTREMITIES: 2+ peripheral pulses with no evidence of peripheral edema and no calf tenderness noted. NEUROLOGIC patient is awake, alert and oriented -3. . - Labs CBC & Chem 7: 02/28/18 10:39 02/28/18 10:39 Labs: Abnormal Lab Results - Last 24 Hours (Table) 02/27/18 02/27/18 02/28/18 Range/Units 16:17 21:05 06:19 RBC (4.30-5.90) m/uL Hgb (13.0-17.5) gm/dL Hct (39.0-53.0) % MCHC (31.0-37.0) g/dL RDW (11.5-15.5) % Neutrophils # (Manual) (1.3-7.7) k/uL Lymphocytes # (Manual) (1.0-4.8) k/uL Metamyelocytes # (Man) (0) k/uL Myelocytes # (Manual) (0) k/uL Nucleated RBCs (0-0) /100 WBC Creatinine (0.66-1.25) mg/dL Glucose (74-99) mg/dL POC Glucose (mg/dL) 186 H 141 H 134 H (75-99) mg/dL Alkaline Phosphatase (38-126) U/L Total Protein (6.3-8.2) g/dL Albumin (3.5-5.0) g/dL Lipase (23-300) U/L 02/28/18 02/28/18 02/28/18 Range/Units 10:39 10:39 11:47 RBC 2.83 L (4.30-5.90) m/uL Hgb 8.2 L (13.0-17.5) gm/dL Hct 27.2 L (39.0-53.0) % MCHC 30.3 L (31.0-37.0) g/dL RDW 18.4 H (11.5-15.5) % Neutrophils # (Manual) 9.70 H (1.3-7.7) k/uL Lymphocytes # (Manual) 0.10 L (1.0-4.8) k/uL Metamyelocytes # (Man) 0.31 H (0) k/uL Myelocytes # (Manual) 0.10 H (0) k/uL Nucleated RBCs 2 H (0-0) /100 WBC Creatinine 0.53 L (0.66-1.25) mg/dL Glucose 163 H (74-99) mg/dL POC Glucose (mg/dL) 161 H (75-99) mg/dL Alkaline Phosphatase 263 H (38-126) U/L Total Protein 5.0 L (6.3-8.2) g/dL Albumin 2.7 L (3.5-5.0) g/dL Lipase 666 H (23-300) U/L Microbiology - Last 24 Hours (Table) 02/24/18 15:29 Blood Culture - Preliminary Blood No Growth after 72 hours Assessment and Plan Plan: Assessment and plan #1 large pericardial effusion with no evidence of tamponade not, we will repeat the echocardiogram with Doppler study in the morning, patient may require pericardial window #2 stage IV liver cancer with metastases to the bone and liver. #3 paroxysmal atrial fibrillation, currently in normal sinus rhythm. #4 history of nicotine dependence, quit 11 months ago. #5 acute pancreatitis Plan From cardiology's perspective, we'll continue patient on his current medications. Discontinue Cardizem drip. Repeat echo showed only small pericardial effusion. He may be able to be discharged from cardiology's perspective and a follow-up appointment will be made in the office post discharge. DNP note has been reviewed, I agree with a documented findings and plan of care. Patient was seen and examined.
--- NOTE | 2018-02-28 16:30 | P.PN ---
Subjective Progress Note Date: 02/28/18 Principal diagnosis: Pericardial effusion, stage IV non-small cell lung cancer with skeletal and liver metastasis Progress note dated 02/27/2018 47-year-old male seen again today on February 27. He is awake and alert. No acute distress. Saturations are excellent on a couple liters of oxygen. Appetite is improved. He was moved up to the sixth floor because of atrial fibrillation and RVR. His appetite has been poor. That's improving. He has a history of acute gastritis likely secondary to his lung cancer drug, acute pancreatitis adnocystic carcinoma of the lung with skeletal and liver metastasis large pericardial effusion and history of tracheal stenosis status post stent placement. On 02/28/2018 patient seen in follow-up. He is awake, alert, in no acute distress. Respirations are even and nonlabored, he denies any dyspnea. Denies any chest pain, denies any palpitations. He is 's rhythm, with a controlled rate, 80 BPM. Currently on room air, with pulse ox of 90%. Vital signs are stable, hemodynamically stable. Blood cultures are negative since admission. Lung sounds are positive for scattered rhonchi, and diminished at bases. The patient is achieving over 2010 his incentive spirometer. Patient continues on IV Solu-Medrol, on Flagyl and Cipro, patient has had no further nausea vomiting. He is tolerating a heart healthy diet. Patient was seen in consultation by CT surgery and at this time being managed surgically in terms of his pericardial effusion. CT chest and echocardiogram were discussed with the patient, at present patient is not having significant dyspnea, he is hemodynamically stable, he is able to lay flat on his back in bed, and not experiencing any distress. Patient would like to continue with medical treatment at this time, and if his symptoms worsen he can return to the hospital for surgical intervention at that time. Objective - Vital Signs Vital signs: Vital Signs Temp 96.6 F L 02/28/18 12:00 Pulse 80 02/28/18 12:00 Resp 16 02/28/18 12:00 BP 101/67 02/28/18 12:00 Pulse Ox 98 02/28/18 12:00 Intake & Output 02/27/18 02/28/18 02/28/18 18:59 06:59 18:59 Intake Total 700 46.667 575.834 Balance 700 46.667 575.834 Weight 101.8 kg 101.8 kg Intake: Intake, IV Titration 100 46.667 95.834 Amount Diltiazem 50 mg In Sodium 100 46.667 95.834 Chloride 0.9% 40 ml @ 10 MG/HR 10 mls/hr IV .Q5H [facility] Rx#:[id number] Oral 600 480 Other: Voiding Method Toilet - Exam No acute distress, oriented 3. Nasal O2 in place HEENT examination is grossly unremarkable. Mucous membranes are moist. No oral lesions. Neck supple. Full range of motion. No adenopathy thyromegaly or neck vein distention. Cardiovascular examination reveals regular rhythm rate. S1-S2 normal. No S3 or S4. No discernible murmur noted. Lungs reveal bilateral rhonchi and a few crackles. Breath sounds equal. No wheezes. Abdomen soft with normal bowel sounds heard. No masses or tenderness. Extremities are intact. No cyanosis clubbing or edema. Skin is without rash or lesion. Neurologic examination is brief but nonfocal. - Labs CBC & Chem 7: 02/28/18 10:39 02/28/18 10:39 Labs: Abnormal Lab Results - Last 24 Hours (Table) 02/27/18 02/27/18 02/28/18 Range/Units 16:17 21:05 06:19 RBC (4.30-5.90) m/uL Hgb (13.0-17.5) gm/dL Hct (39.0-53.0) % MCHC (31.0-37.0) g/dL RDW (11.5-15.5) % Neutrophils # (Manual) (1.3-7.7) k/uL Lymphocytes # (Manual) (1.0-4.8) k/uL Metamyelocytes # (Man) (0) k/uL Myelocytes # (Manual) (0) k/uL Nucleated RBCs (0-0) /100 WBC Creatinine (0.66-1.25) mg/dL Glucose (74-99) mg/dL POC Glucose (mg/dL) 186 H 141 H 134 H (75-99) mg/dL Alkaline Phosphatase (38-126) U/L Total Protein (6.3-8.2) g/dL Albumin (3.5-5.0) g/dL Lipase (23-300) U/L 02/28/18 02/28/18 02/28/18 Range/Units 10:39 10:39 11:47 RBC 2.83 L (4.30-5.90) m/uL Hgb 8.2 L (13.0-17.5) gm/dL Hct 27.2 L (39.0-53.0) % MCHC 30.3 L (31.0-37.0) g/dL RDW 18.4 H (11.5-15.5) % Neutrophils # (Manual) 9.70 H (1.3-7.7) k/uL Lymphocytes # (Manual) 0.10 L (1.0-4.8) k/uL Metamyelocytes # (Man) 0.31 H (0) k/uL Myelocytes # (Manual) 0.10 H (0) k/uL Nucleated RBCs 2 H (0-0) /100 WBC Creatinine 0.53 L (0.66-1.25) mg/dL Glucose 163 H (74-99) mg/dL POC Glucose (mg/dL) 161 H (75-99) mg/dL Alkaline Phosphatase 263 H (38-126) U/L Total Protein 5.0 L (6.3-8.2) g/dL Albumin 2.7 L (3.5-5.0) g/dL Lipase 666 H (23-300) U/L Microbiology - Last 24 Hours (Table) 02/24/18 15:29 Blood Culture - Preliminary Blood No Growth after 72 hours Assessment and Plan Plan: Assessment: 1. Stage IV non-small cell lung cancer, with skeletal and liver metastasis 2. Pericardial effusion 3. Atrial fibrillation with RVR, improved 4. Acute pancreatitis 5. Acute gastritis with nausea and vomiting, secondary to atezolizumab 6. Anemia of chronic disease Plan: Patient remains stable from pulmonary standpoint, denies any dyspnea, denies any orthopnea, his oxygenation is stable on room air. Hemodynamically stable, remains in sinus rhyth with controlled rate. We'll continue to monitor and continue with medical treatment at this time, the patient is in agreement. In case of worsening dyspnea, patient was instructed to return to the hospital, in the pericardial window will be a consideration. I performed a history & physical examination of the patient and discussed their management with my nurse practitioner, Valeria Ramírez. I reviewed the nurse practitioner's note and agree with the documented findings and plan of care. Lung sounds are few scattered rhonchi. The findings and the impression was discussed with the patient. I attest to the documentation by the nurse practitioner. Time with Patient: Less than 30
[2018-02-28 16:43] LABS: Glucose,Whole Blood 182 mg/dL (75-99)
[2018-02-28 16:44] VITALS: BP 136/80; PULSE 85; TEMP 96.7
--- NOTE | 2018-02-28 20:20 | ECHOF ---
Referral Reason:Assessment pericardial effusion MEASUREMENTS -------- HEIGHT: 165.1 cm WEIGHT: 101.6 kg BP: 144/77 RVIDd: 3.8 cm (< 3.3) IVSd: 1.3 cm (0.6 - 1.1) LVIDd: 4.3 cm (3.9 - 5.3) LVPWd: 1.2 cm (0.6 - 1.1) IVSs: 1.9 cm LVIDs: 3.1 cm LVPWs: 1.4 cm FINDINGS -------- Sinus rhythm. This was a technically good study. Limited Study for assessment of peridcardial effusion. The left ventricular size is normal. There is mild concentric left ventricular hypertrophy. Overa ll left ventricular systolic function is normal with, an EF between 55 - 60 %. The right ventricle is mildly enlarged. The aortic root is mildy dilated up to 3.8 cm. There is a moderate, generalized pericardial effusion present. There is no evidence of cardiac tamp onade. CONCLUSIONS -------- 1. Sinus rhythm. 2. This was a technically good study. 3. Limited Study for assessment of peridcardial effusion. 4. The left ventricular size is normal. 5. There is mild concentric left ventricular hypertrophy. 6. Overall left ventricular systolic function is normal with, an EF between 55 - 60 %. 7. The right ventricle is mildly enlarged. 8. The aortic root is mildy dilated up to 3.8 cm. 9. There is a moderate, generalized pericardial effusion present. 10. There is no evidence of cardiac tamponade. OYSTER SHIPPER: Dexter Murphy RDCS
[2018-02-28] MEDS ORDERED: PANTOPRAZOLE 40 MG/10 ML VIAL IVP SCH (21:00)
[2018-03-01] MEDS ORDERED: PARoxetine 20 MG TAB PO SCH (09:00)
[2018-03-01] MEDS ORDERED: predniSONE 20 MG TAB PO SCH (09:00)
== END 2018-02-28 18:13 | disposition home or self-care (01) | DRG 391 ==
LOC: EC 13:32 → 5MS5E 16:53 → 6SEL 02-26 01:46
PROVIDERS: ADMIT Internal Medicine; ATTEND Internal Medicine
DX: K29.00 Acute gastritis without bleeding (principal); K85.90 Acute pancreatitis without necrosis or infection, unspecified; C34.90 Malignant neoplasm of unspecified part of unspecified bronchus or lung; C78.7 Secondary malignant neoplasm of liver and intrahepatic bile duct; C79.51 Secondary malignant neoplasm of bone; C33 Malignant neoplasm of trachea; E44.0 Moderate protein-calorie malnutrition; I31.3 Pericardial effusion (noninflammatory); I47.1 Supraventricular tachycardia; J98.11 Atelectasis; K56.7 Ileus, unspecified; E87.1 Hypo-osmolality and hyponatremia; B37.81 Candidal esophagitis; T45.1X5A Adverse effect of antineoplastic and immunosuppressive drugs, initial encounter; D63.8 Anemia in other chronic diseases classified elsewhere; F41.9 Anxiety disorder, unspecified; G89.3 Neoplasm related pain (acute) (chronic); I08.1 Rheumatic disorders of both mitral and tricuspid valves; I48.0 Paroxysmal atrial fibrillation; K52.9 Noninfective gastroenteritis and colitis, unspecified; Z80.0 Family history of malignant neoplasm of digestive organs; Z82.5 Family history of asthma and other chronic lower respiratory diseases; Z87.891 Personal history of nicotine dependence; Z92.3 Personal history of irradiation; E66.01 Morbid (severe) obesity due to excess calories; Z68.36 Body mass index [BMI] 36.0-36.9, adult
CPT/HCPCS: 36415; 74177; 80048; 80053; 80076; 81003; 82728; 83036; 83540; 83550; 83690; 83735; 84466; 85025; 87040; 93005; 93306; 93308; 96361; 96365; 99285

== ENCOUNTER 2018-03-04 13:07 | Emergency (ER) | payer OTHER ==
[2018-03-04] MEDS ORDERED: methylPREDNISolone SOD SUCCI 125 MG/2 ML VIAL IV STA (13:32)
[2018-03-04] MEDS ORDERED: IPRATROPIUM-ALBUTEROL 3 ML NEB INHALATION STA (13:32)
[2018-03-04] MEDS ORDERED: FUROSEMIDE 10 MG/ML 10 ML VIAL IV STA (13:35)
--- NOTE | 2018-03-04 13:36 | ED ---
SOB HPI - General Chief Complaint: Shortness of Breath Stated Complaint: Legs full of fluid/ Ca Time Seen by Provider: 03/04/18 13:22 Source: patient Mode of arrival: ambulatory Limitations: no limitations - History of Present Illness Initial Comments: This 47-year-old white male presents with a complaint of some lower extremity edema as well as difficulty in breathing. He states that he was discharged from the hospital 4 days after being admitted with nausea and vomiting abdominal pain. He also had a pericardial effusion apparently went through an arrhythmia while in the hospital. They relate that his heart rate apparently would go up to approximately 200 at times while in the hospital. He states that he is placed on some metoprolol which he started 3 days ago. The symptoms started 2 days ago. He states that he has lung cancer which is present to his bones/spine as well as his liver. He initially was diagnosed at the [facility] in 2012 but has been in remission until last year. He is currently on some immunotherapy. It sounds as though he may have a somewhat poor prognosis per discussion with patient and . He denies any chest pain, fever, chills. The relates that she thinks that his current symptoms are related to starting the metoprolol so she stopped this 2 days ago. No other complaints or modifying factors. - Related Data Home Medications Medication Instructions Recorded Confirmed Benzonatate [Tessalon Perles] 100 mg PO TID PRN 02/24/18 03/04/18 Calcium Carbonate [Calcium] 600 mg PO DAILY 02/24/18 03/04/18 Cholecalciferol [Vitamin D3] 1,000 unit PO DAILY 02/24/18 03/04/18 Folic Acid 0.4 mg PO DAILY 02/24/18 03/04/18 HYDROcodone/APAP 10-325MG [[place] 1 tab PO Q6H PRN 02/24/18 03/04/18 10-325] Nystatin 100,000 Unit/ml Susp 5 ml PO BID 02/24/18 03/04/18 [Mycostatin Oral Susp] Ondansetron HCl [Zofran] 8 mg PO Q8H PRN 02/24/18 03/04/18 Pregabalin [Lyrica] 75 mg PO BID 02/24/18 03/04/18 Ranitidine HCl [Zantac] 150 mg PO DAILY 02/24/18 03/04/18 Vitamin B-17 1 tab PO DAILY 02/24/18 03/04/18 Vitamin E 1,000 unit PO DAILY 02/24/18 03/04/18 tiZANidine [Zanaflex] 2 mg PO Q6H PRN 02/24/18 03/04/18 Previous Rx's Medication Instructions Recorded Metoprolol Tartrate [Lopressor] 25 mg PO BID #60 tab 02/28/18 PARoxetine [Paxil] 20 mg PO DAILY #30 tab 02/28/18 predniSONE See Taper PO DAILY #147 tab 02/28/18 Allergies Allergy/AdvReac Type Severity Reaction Status Date / Time morphine Allergy Unknown Verified 03/04/18 14:00 Review of Systems ROS Statement: Those systems with pertinent positive or pertinent negative responses have been documented in the HPI. ROS Other: All systems not noted in ROS Statement are negative. Past Medical History Past Medical History: Cancer Additional Past Medical History / Comment(s): stage 4 lung cancer with mets to bone and liver. currently on immunotherapy History of Any Multi-Drug Resistant Organisms: None Reported Past Surgical History: Hernia Repair, Orthopedic Surgery Additional Past Surgical History / Comment(s): liver biopsy, stent below trachea due to mass, chest port, finger amputation, toe amputation Past Anesthesia/Blood Transfusion Reactions: No Reported Reaction Past Psychological History: No Psychological Hx Reported Smoking Status: Former smoker Past Alcohol Use History: None Reported Past Drug Use History: None Reported - Past Family History Father History Unknown: Yes Family Medical History: Cancer (Colon cancer) Mother Family Medical History: COPD, CVA/TIA General Exam - General Exam Comments Initial Comments: GENERAL: The patient is well nourished and well hydrated. VITAL SIGNS: Heart rate, blood pressure, respiratory rate reviewed as recorded in nurse's notes. EYES: Pupils are round and reactive. Extraocular movements are intact. No conjunctival / lid redness or swelling. ENT: No external evidence of injury, swelling, or ecchymosis. Airway is patent. Throat is clear. NECK: Nontender. No swelling or evidence of injury. No subcutaneous emphysema. Trachea is midline. No thyroid mass. HEART: Tachycardic irregular rhythm. Good peripheral pulses. LUNGS/CHEST: There is significant rhonchi noted bilaterally. No ecchymosis, subcutaneous emphysema, or tenderness. ABDOMEN: There is some mild tenderness and large mass noted to the right liver upon palpation. No peritoneal signs. No abdominal wall swelling or ecchymosis. EXTREMITIES: No extremity tenderness. Normal muscle tone and function. No thoracolumbar tenderness. There is significant lower extremity edema noted bilaterally. NEUROLOGIC: Sensation is grossly intact. Cranial nerve exam reveals face is symmetrical, tongue is midline, speech is clear. SKIN: No abrasions or ecchymosis is noted. No induration or masses noted. PSYCHIATRIC: Alert and oriented. Appropriate behavior and judgment. Limitations: no limitations Course Vital Signs 03/04/18 03/04/18 03/04/18 13:10 13:30 14:16 Temperature 96.9 F L Pulse Rate 102 H 150 H Pulse Rate [ 200 H Creel Operator ] Respiratory 18 18 20 Rate Blood Pressure 115/57 106/84 O2 Sat by Pulse 100 98 Oximetry 03/04/18 03/04/18 03/04/18 14:47 14:52 15:00 Temperature Pulse Rate 146 H 157 H 153 H Pulse Rate [ Creel Operator ] Respiratory 22 18 20 Rate Blood Pressure 112/76 O2 Sat by Pulse 99 Oximetry 03/04/18 03/04/18 15:22 17:07 Temperature 98.0 F Pulse Rate 137 H 175 H Pulse Rate [ Creel Operator ] Respiratory 18 20 Rate Blood Pressure 112/76 102/84 O2 Sat by Pulse 96 98 Oximetry Medical Decision Making - Medical Decision Making The patient was seen and examined. All diagnostics were reviewed. An IV is started and he does receive 80 mg of Lasix intravenously. The EKG shows atrial fibrillation with rapid ventricular response at a rate of 173. There is no acute ST-T wave changes identified. The QRS duration is 84 and the QTC intervals 458. Solu-Medrol 125 mg IV is also ordered. He is given a breathing treatment as well. A Cardizem bolus and drip is also given for the atrial fibrillation. The laboratories reviewed and does show evidence of anemia, elevated d-dimer, as well as hypochloremia. The chest x-ray is reviewed and case was discussed with the radiologist. They do note that he has either pneumomediastinum or pneumopericardium. They recommend a computed tomography scan of the chest. This CT is ordered and is currently pending. The patient also had a bilateral lower extremity Doppler ordered which is pending. The ultrasound does not show any evidence of DVT. The computed tomography scan of the thorax shows the pneumomediastinum and pneumoperitoneum which it feels likely related to recent pericardiocentesis. Upon discussion with the patient, he denies having any known pericardiocentesis on his last admission. He does relate that he did have a pericardial effusion. They also note some pneumonia. Please see report for details. The patient's laboratories reviewed and does show evidence of a elevated d-dimer as well as some anemia. The case is discussed with Dr. Cox and he is agreeable to admission. The patient remains fairly tachycardic and the Cardizem drip is increased. Approximately 45 minutes of critical care time is utilized and the treatment of the patient. Cardiology, pulmonology, and oncology will be consulted. The patient does relate that he is a full CODE STATUS. He'll be admitted to the intensive care unit. Dr. Jimenez has been paged and we are currently awaiting his call back. The case was eventually discussed with the end peak covering for Dr. Jimenez and she does relate that Ativan sometimes helps with this tachycardia there is some anxiety on board. Some Ativan is ordered. Broad-spectrum antibiotics are ordered as well. She is requesting that we consult cardiothoracic surgery and consult is placed. The patient will be admitted to the intensive care unit. - Lab Data Result diagrams: 03/04/18 14:23 03/04/18 14:23 Lab Results 03/04/18 03/04/18 03/04/18 Range/Units 14:23 14:23 14:23 WBC 4.6 (3.8-10.6) k/uL RBC 4.15 L (4.30-5.90) m/uL Hgb 12.4 L D (13.0-17.5) gm/dL Hct 38.7 L (39.0-53.0) % MCV 93.3 (80.0-100.0) fL MCH 29.8 (25.0-35.0) pg MCHC 31.9 (31.0-37.0) g/dL RDW 18.6 H (11.5-15.5) % Plt Count 140 L (150-450) k/uL Neutrophils % 84 % Lymphocytes % 4 % Monocytes % 8 % Eosinophils % 1 % Basophils % 0 % Neutrophils # 3.9 (1.3-7.7) k/uL Lymphocytes # 0.2 L (1.0-4.8) k/uL Monocytes # 0.4 (0-1.0) k/uL Eosinophils # 0.1 (0-0.7) k/uL Basophils # 0.0 (0-0.2) k/uL Hypochromasia Moderate Poikilocytosis Slight Anisocytosis Slight PT (9.0-12.0) sec INR (<1.2) APTT (22.0-30.0) sec D-Dimer (<0.60) mg/L FEU Sodium 137 (137-145) mmol/L Potassium 4.5 (3.5-5.1) mmol/L Chloride 97 L (98-107) mmol/L Carbon Dioxide 29 (22-30) mmol/L Anion Gap 11 mmol/L BUN 21 H (9-20) mg/dL Creatinine 0.58 L (0.66-1.25) mg/dL Est GFR (CKD-EPI)AfAm >90 (>60 ml/min/1.73 sqM) Est GFR (CKD-EPI)NonAf >90 (>60 ml/min/1.73 sqM) Glucose 128 H (74-99) mg/dL Calcium 10.0 (8.4-10.2) mg/dL Total Bilirubin 0.8 (0.2-1.3) mg/dL AST 43 (17-59) U/L ALT 53 (21-72) U/L Alkaline Phosphatase 496 H (38-126) U/L Total Creatine Kinase <20 L (55-170) U/L CK-MB (CK-2) 0.6 (0.0-2.4) ng/mL CK-MB (CK-2) Rel Index Troponin I <0.012 (0.000-0.034) ng/mL NT-Pro-B Natriuret Pep pg/mL Total Protein 5.1 L (6.3-8.2) g/dL Albumin 2.8 L (3.5-5.0) g/dL 03/04/18 03/04/18 Range/Units 14:23 14:23 WBC (3.8-10.6) k/uL RBC (4.30-5.90) m/uL Hgb (13.0-17.5) gm/dL Hct (39.0-53.0) % MCV (80.0-100.0) fL MCH (25.0-35.0) pg MCHC (31.0-37.0) g/dL RDW (11.5-15.5) % Plt Count (150-450) k/uL Neutrophils % % Lymphocytes % % Monocytes % % Eosinophils % % Basophils % % Neutrophils # (1.3-7.7) k/uL Lymphocytes # (1.0-4.8) k/uL Monocytes # (0-1.0) k/uL Eosinophils # (0-0.7) k/uL Basophils # (0-0.2) k/uL Hypochromasia Poikilocytosis Anisocytosis PT 11.6 (9.0-12.0) sec INR 1.2 H (<1.2) APTT 24.5 (22.0-30.0) sec D-Dimer 1.82 H (<0.60) mg/L FEU Sodium (137-145) mmol/L Potassium (3.5-5.1) mmol/L Chloride (98-107) mmol/L Carbon Dioxide (22-30) mmol/L Anion Gap mmol/L BUN (9-20) mg/dL Creatinine (0.66-1.25) mg/dL Est GFR (CKD-EPI)AfAm (>60 ml/min/1.73 sqM) Est GFR (CKD-EPI)NonAf (>60 ml/min/1.73 sqM) Glucose (74-99) mg/dL Calcium (8.4-10.2) mg/dL Total Bilirubin (0.2-1.3) mg/dL AST (17-59) U/L ALT (21-72) U/L Alkaline Phosphatase (38-126) U/L Total Creatine Kinase (55-170) U/L CK-MB (CK-2) (0.0-2.4) ng/mL CK-MB (CK-2) Rel Index Troponin I (0.000-0.034) ng/mL NT-Pro-B Natriuret Pep 1100 pg/mL Total Protein (6.3-8.2) g/dL Albumin (3.5-5.0) g/dL Disposition Clinical Impression: Bilateral lower extremity edema, Dyspnea, Lung cancer, Liver metastases, Bone metastases, Atrial fibrillation with rapid ventricular response, Pneumopericardium, Pneumomediastinum, Pneumonia, Full code status Disposition: ADMITTED IP TO THIS HOSP Condition: Poor Is patient prescribed a controlled substance at d/c from ED?: No Referrals: Prosper Shanks MD [Primary Care Provider] - 1-2 days Time of Disposition: 17:24 Decision Date: 03/04/18 Decision Time: 17:24
[2018-03-04] MEDS ORDERED: DILTIAZEM 50 MG in SODIUM CHLORIDE 0.9% 40 ML IV ONE ×2 (13:42→17:35)
[2018-03-04] MEDS ORDERED: IPRATROPIUM 0.5 MG/2.5 ML NEBU INHALATION STA (14:40)
[2018-03-04 14:57] LABS: ALT 53 U/L (21-72); AST 43 U/L (17-59); Albumin 2.8 g/dL (3.5-5.0); Alkaline Phosphatase 496 U/L (38-126); Anion Gap 11 mmol/L; Blood Urea Nitrogen 21 mg/dL (9-20); Carbon Dioxide 29 mmol/L (22-30); Chloride 97 mmol/L (98-107); Creatine Kinase <20 U/L (55-170); Glucose 128 mg/dL (74-99); Potassium 4.5 mmol/L (3.5-5.1); Sodium 137 mmol/L (137-145); Total Bilirubin 0.8 mg/dL (0.2-1.3); Total Protein 5.1 g/dL (6.3-8.2)
[2018-03-04 15:04] LABS: Anisocytosis Slight; Basophils % (A) 0 %; Eosinophils # (A) 0.1 k/uL (0-0.7); Eosinophils % (A) 1 %; HCT 38.7 % (39.0-53.0); Hypochromasia Moderate; Lymphocytes # (A) 0.2 k/uL (1.0-4.8); Lymphocytes % (A) 4 %; MCH 29.8 pg (25.0-35.0); MCHC 31.9 g/dL (31.0-37.0); MCV 93.3 fL (80.0-100.0); Mean Platelet Volume 7.9; Monocytes # (A) 0.4 k/uL (0-1.0); Monocytes % (A) 8 %; Neutrophils # (A) 3.9 k/uL (1.3-7.7); Neutrophils % (A) 84 %; Platelet Count 140 k/uL (150-450); Poikilocytosis Slight; RBC 4.15 m/uL (4.30-5.90); RDW 18.6 % (11.5-15.5); WBC 4.6 k/uL (3.8-10.6)
[2018-03-04 15:09] LABS: Creatine Kinase MB 0.6 ng/mL (0.0-2.4); HGB 12.4 gm/dL (13.0-17.5); Troponin I <0.012 ng/mL (0.000-0.034)
[2018-03-04 15:14] LABS: INR 1.2 (<1.2); Partial Thromboplastin Time 24.5 sec (22.0-30.0); Prothrombin Time 11.6 sec (9.0-12.0)
[2018-03-04 15:19] LABS: D-Dimer 1.82 mg/L FEU (<0.60)
[2018-03-04] MEDS ORDERED: RX INFO: IV CONTRAST WAS GIVEN 1 EACH MISC MISCELLANE PRN (15:21)
--- NOTE | 2018-03-04 15:23 | XR ---
EXAMINATION TYPE: XR chest 2V DATE OF EXAM: 03/04/2018 COMPARISON: 02/23/2018 TECHNIQUE: PA and lateral views submitted. HISTORY: Pain FINDINGS: Mediport is seen and there is sclerosis involving the humerus which could be metastatic. Chronic defo rmity left clavicle. There is a lucency which may be related to the pericardium or mediastinum. Under lying skeletal metastasis the rib cage not excluded. No pleural effusion or pneumothorax or focal pne umonia. IMPRESSION: 1. Findings are suggestive of pneumopericardium or mediastinum CT of the chest recommended. Report ca lled to emergency room physician.
--- NOTE | 2018-03-04 16:46 | CT ---
EXAMINATION TYPE: CT angio chest DATE OF EXAM: 03/04/2018 4:36 PM COMPARISON: CT abdomen 02/24/2018 HISTORY: chest pain, SOB, bilateral lower limb swelling, hx of lung ca CT DLP: 652 mGycm Automated exposure control for dose reduction was used. CONTRAST: CTA scan of the thorax is performed with IV Contrast, patient injected with 100 mL of Isovue 370, pul monary embolism protocol. . FINDINGS: There is patchy nodular mild infiltrate at the lung bases. There is small left pleural effusion. Ther e is pericardial effusion and pneumopericardium. There is also pneumomediastinum. There is apparent s tent at the distal trachea extending into both mainstem bronchi. There is subcarinal adenopathy and s ome encasement of the proximal mainstem bronchi. Thoracic aorta is intact without evidence of aneurys m or dissection. I see no filling defects in the pulmonary arteries. There is some linear density and pleural thickening along the right major fissure in the superior segment right lower lobe. There is a large irregular low-density mass in the right lobe of the liver. There is a 2.5 cm low-den sity area in the left lobe of the liver. IMPRESSION: NO EVIDENCE OF PULMONARY EMBOLISM. LEFT PLEURAL EFFUSION. THERE IS MILD NODULAR INFILTRATE AT THE LEF T LUNG BASE. PNEUMOMEDIASTINUM AND PNEUMOPERICARDIUM. THERE IS DECREASE IN THE PERICARDIAL EFFUSION COMPARED TO LA ST EXAM. THIS APPEARANCE PROBABLY RELATES TO PERICARDIAL CENTESIS. LOW-DENSITY LIVER COMPLEX MASS CONSISTENT WITH METASTATIC DISEASE SIMILAR TO LAST EXAM.
--- NOTE | 2018-03-04 17:16 | US ---
EXAMINATION TYPE: US venous doppler duplex LE BI DATE OF EXAM: 03/04/2018 4:52 PM COMPARISON: NONE CLINICAL HISTORY: Pain. Bilateral leg swelling SIDE PERFORMED: Bilateral TECHNIQUE: The lower extremity deep venous system is examined utilizing real time linear array sonog marshal with graded compression, doppler sonography and color-flow sonography. VESSELS IMAGED: External Iliac Vein (EIV) Common Femoral Vein Deep Femoral Vein Greater Saphenous Vein * Femoral Vein Popliteal Vein Small Saphenous Vein * Proximal Calf Veins (* superficial vessels) Right Leg: Negative for DVT, possible Rhodes's cyst= 3.2 x 0.6 x 2.1 cm Left Leg: Negative for DVT, possible Rhodes's cyst= 3.4 x 1.0 x 1.2 cm IMPRESSION: No evidence of deep venous thrombosis. Lateral popliteal cyst are noted.
[2018-03-04] MEDS ORDERED: LORazepam 2 MG/ML INJ IV STA (17:38)
[2018-03-04] MEDS ORDERED: VANCOMYCIN 1,000 MG in SODIUM CHLORIDE 0.9% 250 ML IVPB STA (17:38)
[2018-03-04] MEDS ORDERED: PIPERACILLIN-TAZOBACTAM 3.375 GM in DEXTROSE/WATER 1 50ML.BAG IVPB STA (17:38)
[2018-03-04] MEDS ORDERED: VANCOMYCIN IV PER PHARMACY 1 EACH MISC MISCELLANE PRN (17:38)
[2018-03-04] MEDS ORDERED: VANCOMYCIN 2,000 MG in SODIUM CHLORIDE 0.9% 500 ML IVPB ONE (17:45)
[2018-03-04] MEDS ORDERED: HYDROcodone/APAP 10-325MG 1 EACH TAB PO ONE (18:24)
[2018-03-04] MEDS ORDERED: SODIUM CHLORIDE 0.9% 500 ML IV STA (18:44)
[2018-03-04] MEDS ORDERED: METOPROLOL TARTRATE 5 MG/5 ML VIAL IVP STA (18:44)
[2018-03-04] MEDS ORDERED: SODIUM CHLORIDE 0.9% 1,000 ML IV STA (18:44)
[2018-03-04] MEDS ORDERED: ESMOLOL IN SODIUM CHLORIDE PMX 2.5 GM in SALINE 1 250ML.BAG IV ONE (19:15)
[2018-03-04 22:42] VITALS: BP 100/65; PULSE 125; RESP 18
[2018-03-04 23:38] VITALS: TEMP 98.6
[2018-03-05] MEDS ORDERED: VANCOMYCIN 1,750 MG in SODIUM CHLORIDE 0.9% 250 ML IVPB SCH (03:00)
== END 2018-03-04 22:45 | disposition other institution (70) ==
LOC: EC 13:07
DX: I48.91 Unspecified atrial fibrillation (principal); C34.90 Malignant neoplasm of unspecified part of unspecified bronchus or lung; C78.7 Secondary malignant neoplasm of liver and intrahepatic bile duct; C79.51 Secondary malignant neoplasm of bone; I31.9 Disease of pericardium, unspecified; J98.2 Interstitial emphysema; J18.9 Pneumonia, unspecified organism; R60.0 Localized edema; D64.9 Anemia, unspecified; I31.3 Pericardial effusion (noninflammatory); F41.9 Anxiety disorder, unspecified; Z53.20 Procedure and treatment not carried out because of patient's decision for unspecified reasons; Z87.891 Personal history of nicotine dependence; Z79.899 Other long term (current) drug therapy; Z88.5 Allergy status to narcotic agent; Z80.0 Family history of malignant neoplasm of digestive organs
CPT/HCPCS: 99285; 96365; 96366 ×4; 96368; 96375 ×2; 36415; 94640; 93005; 85379; 83880; 80053; 82140; 82550; 82553; 84484; 85025; 85610; 85730; 87040; 71046; 93970; 71275; J3370; J2060; J1940; J2930; Q9967